=== PATIENT | male | born 1965 | race Hispanic/Latino ===

== ENCOUNTER 2016-10-01 12:34 | Emergency (ER) | payer BC ==
[2016-10-01 13:18] VITALS: BP 130/87
[2016-10-01 13:47] LABS: Hematocrit 48.8 % (35.5-45.6); Hemoglobin 16.6 gm/dl (11.8-15.2); Mean Corpuscular HGB Conc 34 % (32-34); Mean Corpuscular Hemoglobin 33 pg (28-32); Mean Corpuscular Volume 95 fl (84-94); Platelet Count 254 K/mm3 (140-440); Red Blood Count 5.13 M/mm3 (3.65-5.03); Red Cell Distribution Width 14.3 % (13.2-15.2); White Blood Count 7.6 K/mm3 (4.5-11.0)
[2016-10-01 14:00] LABS: Anion Gap 20 mmol/L; BUN/Creatinine Ratio 14.28; Blood Urea Nitrogen 10 mg/dL (9-20); Calcium 8.9 mg/dL (8.4-10.2); Carbon Dioxide 24 mmol/L (22-30); Chloride 100.9 mmol/L (98-107); Glucose 90 mg/dL (75-100); Potassium 4.1 mmol/L (3.6-5.0); Sodium 141 mmol/L (137-145)
--- NOTE | 2016-10-01 14:15 | Emergency Department Report ---
ED Chest Pain HPI - General Chief Complaint: Chest Pain Stated Complaint: CHEST PAIN Time Seen by Provider: 10/01/16 13:38 Source: patient Mode of arrival: Ambulatory Limitations: No Limitations - History of Present Illness Initial Comments: The patient presented for evaluation of chest pain. He is making it clear from the onset that he would like to be discharged. The history is essentially as followed. Patient states that on he had "indigestion all day". He states he was clammy frequently during that day. He denies having problems with reflux. He states on Monday he felt fine and went to see his primary care physician. His primary care physician referred him to [facility]. He states he has appointment for a stress test this week. Today (Monday) he was at work and felt short of breath with light exertion. He states he was a little sweaty today but he didn't break out into a cold sweat. He stated the shortness of breath was unusual for him and that is why he wanted to be checked out. MD Complaint: chest pain -: Gradual Onset: during rest Pain Location: substernal Pain Radiation: none Severity: moderate Quality: other ("indigestion".) Consistency: now resolved Improves With: nothing Worsens With: nothing re: other (sweating and shortness of breath) Treatments Prior to Arrival: none Aspirin use within the Past 7 Days: (1) Yes - Related Data Allergies Allergy/AdvReac Type Severity Reaction Status Date / Time No Known Allergies Allergy Unverified 10/01/16 13:08 JAMES score - James Score Age > 65: (0) No Aspirin use within the Past 7 Days: (1) Yes 3 or more CAD Risk Factors: (1) Yes 2 or more Angina events in past 24 hrs: (0) No Known CAD with more than 50% Stenosis: (1) Yes Elevated Cardiac Markers: (0) No ST Deviation Greater than 0.5mm: (0) No JAMES Score: 3 ED Review of Systems ROS: Stated complaint: CHEST PAIN Other details as noted in HPI Constitutional: denies: chills, fever Eyes: denies: eye pain, eye discharge, vision change ENT: denies: ear pain, throat pain Respiratory: shortness of breath. denies: cough, wheezing Cardiovascular: chest pain. denies: palpitations Endocrine: no symptoms reported Gastrointestinal: denies: abdominal pain, nausea, diarrhea Genitourinary: denies: urgency, dysuria Musculoskeletal: denies: back pain, joint swelling, arthralgia Skin: denies: rash, lesions Neurological: denies: headache, weakness, paresthesias Psychiatric: denies: anxiety, depression Hematological/Lymphatic: denies: easy bleeding, easy bruising ED Past Medical Hx - Past Medical History Hx Hypertension: Yes Hx Heart Attack/AMI: Yes Hx COPD: Yes - Surgical History Additional Surgical History: heart stent x 2, elbow, right knee - Social History Smoking Status: Current Every Day Smoker Substance Use Type: Alcohol ED Physical Exam - General Limitations: No Limitations General appearance: alert, in no apparent distress - Head Head exam: Present: atraumatic, normocephalic - Eye Eye exam: Present: normal appearance. Absent: scleral icterus - ENT ENT exam: Present: mucous membranes moist - Neck Neck exam: Present: normal inspection - Respiratory Respiratory exam: Present: normal lung sounds bilaterally. Absent: respiratory distress - Cardiovascular Cardiovascular Exam: Present: regular rate, normal rhythm. Absent: systolic murmur, diastolic murmur, rubs, gallop - GI/Abdominal GI/Abdominal exam: Present: soft, normal bowel sounds. Absent: distended, tenderness, guarding, rebound, rigid - Rectal Rectal exam: Present: deferred - Extremities Exam Extremities exam: Present: normal inspection, normal capillary refill. Absent: pedal edema, joint swelling, calf tenderness - Back Exam Back exam: Present: normal inspection - Neurological Exam Neurological exam: Present: alert, oriented X3, CN II-XII intact. Absent: motor sensory deficit - Psychiatric Psychiatric exam: Present: normal affect, normal mood - Skin Skin exam: Present: warm, dry, intact, normal color. Absent: rash ED Course Vital Signs 10/01/16 13:13 Temperature 97.8 F Pulse Rate 72 Respiratory 18 Rate Blood Pressure 130/87 O2 Sat by Pulse 98 Oximetry - Reevaluation(s) Reevaluation #1: I have explained to the patient that we would like him to stay for further care , evaluation and cardiology consultation. I explained to him the limitations of current testing. He states he understands that. However, he is not inclined to be admitted. He will sign out AMA. I encouraged him to follow-up as soon as possible with [facility] and return as desired for further care and evaluation. 10/01/16 14:34 ED Medical Decision Making - Lab Data Result diagrams: 10/01/16 13:30 10/01/16 13:30 Critical care attestation.: If time is entered above; I have spent that time in minutes in the direct care of this critically ill patient, excluding procedure time. ED Disposition Clinical Impression: Chest pain Qualifiers: Chest pain type: unspecified Qualified Code(s): R07.9 - Chest pain, unspecified Coronary artery disease Qualifiers: Coronary Disease-Associated Artery/Lesion type: [place] artery [place] vs. transplanted heart: [place] heart Associated angina: angina presence unspecified Qualified Code(s): I25.10 - Atherosclerotic heart disease of [place] coronary artery without angina pectoris Disposition: PATIENT REGISTERED,NO TRIAGE Is pt being admited?: No Does the pt Need Aspirin: No Condition: Stable Instructions: Chest Pain (ED) Additional Instructions: We have commended that you stay for the usual and customary workup for this problem. I would strongly advise you to return should do have any other symptoms. I would additionally recommend that you go to [facility] office for communicate with them on Monday to explain to them your symptoms. Referrals: [facility] [Provider Group] - ZULEMA ROSA MD [Primary Care Provider] - 3-5 Days Time of Disposition: 14:35
[2016-10-01 14:47] LABS: Basophils % (Manual) 0 % (0.0-1.8); Blastocytes % (Manual) 0 %
[2016-10-01 14:48] LABS: Diff Status Complete; RBC Morphology Normal
== END 2016-10-01 15:45 | disposition left against medical advice (07) ==
LOC: ED 12:34
DX: I25.10 Atherosclerotic heart disease of native coronary artery without angina pectoris (principal); R07.9 Chest pain, unspecified; I10 Essential (primary) hypertension; I25.2 Old myocardial infarction; J44.9 Chronic obstructive pulmonary disease, unspecified; F17.200 Nicotine dependence, unspecified, uncomplicated
CPT/HCPCS: 36415; 80048; 84484; 85007; 85025; 93005; 93010

== ENCOUNTER 2017-12-07 11:17 | Emergency (ER) | payer BC ==
[2017-12-07 11:26] VITALS: BP 125/84
[2017-12-07] MEDS ORDERED: NACL 0.9% 1000 ML 1,000 ML IV ONE (11:27)
[2017-12-07 12:02] LABS: Basophils # (Auto) 0.1 K/mm3 (0.0-0.1); Basophils % (Auto) 1.5 % (0.0-1.8); Eosinophils # (Auto) 0.1 K/mm3 (0.0-0.4); Hematocrit 46.9 % (35.5-45.6); Hemoglobin 16.5 gm/dl (11.8-15.2); Lymphocytes # (Auto) 2.5 K/mm3 (1.2-5.4); Lymphocytes % (Auto) 41.1 % (13.4-35.0); Mean Corpuscular HGB Conc 35 % (32-34); Mean Corpuscular Hemoglobin 34 pg (28-32); Mean Corpuscular Volume 97 fl (84-94); Monocytes # (Auto) 0.5 K/mm3 (0.0-0.8); Monocytes % (Auto) 8.1 % (0.0-7.3); Platelet Count 193 K/mm3 (140-440); Red Blood Count 4.82 M/mm3 (3.65-5.03)
[2017-12-07 12:13] LABS: INR 0.82 (0.87-1.13)
[2017-12-07 12:14] LABS: Partial Thromboplastin Time 29.9 Sec. (24.2-36.6)
[2017-12-07 12:21] LABS: Alanine Aminotransferase 136 units/L (7-56); Albumin 4.5 g/dL (3.9-5); BUN/Creatinine Ratio 15; Blood Urea Nitrogen 9 mg/dL (9-20); Calcium 9.1 mg/dL (8.4-10.2); Hemolysis Index 21; Lipase 94 units/L (13-60)
== END 2017-12-07 18:35 | disposition left against medical advice (07) ==
LOC: ED 11:17
DX: K62.5 Hemorrhage of anus and rectum (principal); Z53.21 Procedure and treatment not carried out due to patient leaving prior to being seen by health care provider
CPT/HCPCS: 36415; 80053; 83690; 85025; 85610; 85730; 86850; 86900; 86901; 93005; 93010

== ENCOUNTER 2017-12-26 22:17 | Emergency (ER) | payer SELFPAY ==
[2017-12-26 22:32] VITALS: BP 127/82
[2017-12-26] MEDS ORDERED: NACL 0.9% 1000 ML 1,000 ML IV ONE (22:32)
[2017-12-26 23:04] LABS: Hematocrit 45.8 % (35.5-45.6); Hemoglobin 15.6 gm/dl (11.8-15.2); Mean Corpuscular HGB Conc 34 % (32-34); Mean Corpuscular Hemoglobin 33 pg (28-32); Mean Corpuscular Volume 97 fl (84-94); Platelet Count 168 K/mm3 (140-440); Red Cell Distribution Width 13.8 % (13.2-15.2)
[2017-12-26 23:20] LABS: Alanine Aminotransferase 138 units/L (7-56); Albumin 4.6 g/dL (3.9-5); BUN/Creatinine Ratio 10; Blood Urea Nitrogen 6 mg/dL (9-20); Hemolysis Index 4; Lipase 114 units/L (13-60)
[2017-12-26 23:21] LABS: INR 0.86 (0.87-1.13)
[2017-12-26 23:55] LABS: Band Neutrophils # (Manual) 0.1 K/mm3; Basophils % (Manual) 0 % (0.0-1.8); Total Cells Counted 100
[2017-12-26 23:56] LABS: Platelet Estimate Consistent w Auto
== END 2017-12-27 00:15 | disposition left against medical advice (07) ==
LOC: ED 22:17
DX: K92.2 Gastrointestinal hemorrhage, unspecified (principal)
CPT/HCPCS: 36415; 80053; 83690; 85007; 85025; 85610; 85730; 86850; 86900; 86901

== ENCOUNTER → 2017-12-27 | Emergency (ER) | payer BC, OTHER ==
[~2017-12-27] MED LIST: NACL 0.9% 1000 ML 1,000 ML IV ONE; PROTONIX IV SCH; PROVENTIL IH PRN; SODIUM CHLORIDE FLUSH SYRINGE 10 ML IV PRN; SODIUM CHLORIDE FLUSH SYRINGE 10 ML IV SCH; TYLENOL PO PRN; ZOFRAN IV PRN; celeXA PO SCH
[2017-12-27 09:54] LABS: Basophils # (Auto) 0.1 K/mm3 (0.0-0.1); Basophils % (Auto) 1.9 % (0.0-1.8); Eosinophils # (Auto) 0.1 K/mm3 (0.0-0.4); Eosinophils % (Auto) 1.6 % (0.0-4.3); Hematocrit 48.6 % (35.5-45.6); Hemoglobin 16.9 gm/dl (11.8-15.2); Lymphocytes # (Auto) 1.5 K/mm3 (1.2-5.4); Lymphocytes % (Auto) 38.8 % (13.4-35.0); Mean Corpuscular HGB Conc 35 % (32-34); Mean Corpuscular Hemoglobin 34 pg (28-32); Mean Corpuscular Volume 98 fl (84-94); Monocytes # (Auto) 0.3 K/mm3 (0.0-0.8); Monocytes % (Auto) 8.2 % (0.0-7.3); Platelet Count 172 K/mm3 (140-440); Red Blood Count 4.98 M/mm3 (3.65-5.03)
[2017-12-27 10:16] LABS: Alanine Aminotransferase 168 units/L (7-56); Albumin 4.6 g/dL (3.9-5); BUN/Creatinine Ratio 10; Blood Urea Nitrogen 6 mg/dL (9-20); Calcium 9.1 mg/dL (8.4-10.2); Hemolysis Index 10; Lipase 92 units/L (13-60)
[2017-12-27 10:20] LABS: INR 0.77 (0.87-1.13)
[2017-12-27 10:21] LABS: Partial Thromboplastin Time 28.6 Sec. (24.2-36.6)
[2017-12-27 12:39] VITALS: BP 126/75
--- NOTE | 2017-12-27 13:45 | Emergency Department Report ---
ED GI Bleed HPI - General Chief complaint: GI Bleed Stated complaint: GI BLEED Time Seen by Provider: 12/27/17 11:30 Source: patient Mode of arrival: Ambulatory Limitations: No Limitations - History of Present Illness Initial comments: Patient is a 52-year-old male who is presenting with GI bleed. Patient states that for the past several weeks he has been having daily bloody bowel movements that the patient is even taken pictures as well as vomiting some blue vomit with blood streaks as well. Patient states was bright red and he has some generalized abdominal crampiness. Patient states visited [facility] and states his blood work was done but there is no other diagnostic chest tests performed. Patient states that he is continued to have bleeding per stool. Patient denies any fevers chills chest pain cough nausea vomiting or diarrhea at this time. Patient has past medical history hypertension and acute CA has 2 stents patient is not on any meds at this time secondary to money issues. Severity scale (0 -10): 5 - Related Data Home Medications Medication Instructions Recorded Confirmed Last Taken Citalopram [celeXA] 20 mg PO QDAY 12/27/17 12/27/17 12/26/17 Allergies Allergy/AdvReac Type Severity Reaction Status Date / Time No Known Allergies Allergy Verified 12/07/17 11:22 ED Review of Systems ROS: Stated complaint: GI BLEED Other details as noted in HPI Comment: All other systems reviewed and negative ED Past Medical Hx - Past Medical History Previous Medical History?: Yes Hx Hypertension: Yes Hx Heart Attack/AMI: Yes (x 2) Hx COPD: Yes Additional medical history: GI bleed. CAD - Surgical History Past Surgical History?: Yes Hx Coronary Stent: Yes (x 2) Additional Surgical History: bilateral elbow. right knee - Social History Smoking Status: Current Every Day Smoker Substance Use Type: Alcohol - Medications Home Medications: Home Medications Medication Instructions Recorded Confirmed Last Taken Type Citalopram [celeXA] 20 mg PO QDAY 12/27/17 12/27/17 12/26/17 History ED Physical Exam - General Limitations: No Limitations General appearance: alert, in no apparent distress - Head Head exam: Present: atraumatic, normocephalic - Eye Eye exam: Present: normal appearance - ENT ENT exam: Present: mucous membranes moist - Neck Neck exam: Present: normal inspection - Respiratory Respiratory exam: Present: normal lung sounds bilaterally. Absent: respiratory distress, wheezes, rales, rhonchi - Cardiovascular Cardiovascular Exam: Present: regular rate, normal rhythm. Absent: systolic murmur, diastolic murmur, rubs, gallop - GI/Abdominal GI/Abdominal exam: Present: soft, normal bowel sounds. Absent: distended, tenderness, guarding, rebound - Rectal Rectal exam: Present: deferred, heme (-) stool - Extremities Exam Extremities exam: Present: normal inspection - Back Exam Back exam: Present: normal inspection - Neurological Exam Neurological exam: Present: alert, oriented X3 - Psychiatric Psychiatric exam: Present: normal affect, normal mood - Skin Skin exam: Present: warm, dry, intact, normal color. Absent: rash ED Course Vital Signs 12/27/17 12/27/17 12/27/17 09:16 12:37 12:39 Temperature 99.1 F Pulse Rate 84 92 H Respiratory 16 16 16 Rate Blood Pressure 144/78 Blood Pressure 126/75 [Left] O2 Sat by Pulse 100 98 100 Oximetry ED Medical Decision Making - Lab Data Result diagrams: 12/27/17 09:30 12/27/17 09:30 Despite the fact that the patient was Hemoccult negative on his rectal exam patient did give a stool sample after having a bowel movement here in the department and this did appear bloody. It was loose stool with large amounts of blood present. Patient be admitted at this time to Dr. Stauffer service to undergo a GI workup. Patient's CT scan was inconclusive. - EKG Data -: EKG Interpreted by Me - EKG Data Interpretation: other (EKG shows sinus tachycardia 100 for normal axis normal intervals there is anterior septal Q waves present with no ST segment elevations or depressions time of interpretation is 1145) - Radiology Data CT abdomen and pelvis with IV contrast is negative for acute process Critical care attestation.: If time is entered above; I have spent that time in minutes in the direct care of this critically ill patient, excluding procedure time. ED Disposition Clinical Impression: GI bleed Qualifiers: GI bleed type/associated pathology: unspecified gastrointestinal hemorrhage type Qualified Code(s): K92.2 - Gastrointestinal hemorrhage, unspecified Disposition: DC- TO HOME OR SELFCARE Is pt being admited?: Yes Does the pt Need Aspirin: No Condition: Stable Referrals: PRIMARY CARE, [Primary Care Provider] - 3-5 Days Forms: Accompanied Note
--- NOTE | 2017-12-27 14:12 | Cat Scan Report ---
CT ABDOMEN PELVIS WITH CONTRAST: HISTORY: GI bleeding. COMPARISON: 07/05/12. TECHNIQUE: Helical CT in 1.25mm intervals following IV contrast. Sagittal and coronal reconstructions. FINDINGS: Lung bases: Normal. Liver: Moderate to severe diffuse fatty infiltration of the liver parenchyma is identified. No focal mass. The hepatic vasculature is patent. Biliary system: Normal. Pancreas: Normal. Spleen: Normal. Kidneys/ureters/bladder: Normal. Adrenal glands: Normal. Aorta: Normal. Intestines: Unremarkable. No site of GI bleeding is detected on CT. Appendix: Normal. Ascites: None. Adenopathy: None. Musculoskeletal: Mild thoracolumbar spondylosis. IMPRESSION: No site of GI bleeding is detected on CT. Fatty infiltration of the liver.
--- NOTE | 2017-12-27 14:48 | History and Physical Report ---
Medications and Allergies Allergies Allergy/AdvReac Type Severity Reaction Status Date / Time No Known Allergies Allergy Verified 12/07/17 11:22 Home Medications Medication Instructions Recorded Confirmed Last Taken Type Citalopram [celeXA] 20 mg PO QDAY 12/27/17 12/27/17 12/26/17 History Active Meds: Active Medications Acetaminophen (Tylenol) 650 mg PO Q4H PRN PRN Reason: Pain MILD(1-3)/Fever >100.5/WILLAMS Albuterol (Proventil) 2.5 mg IH Q4HRT PRN PRN Reason: Shortness Of Breath Ondansetron HCl (Zofran) 4 mg IV Q8H PRN PRN Reason: Nausea And Vomiting Pantoprazole Sodium (Protonix) 40 mg IV BID STUART Sodium Chloride (Sodium Chloride Flush Syringe 10 Ml) 10 ml IV BID STUART Sodium Chloride (Sodium Chloride Flush Syringe 10 Ml) 10 ml IV PRN PRN PRN Reason: LINE FLUSH Exam - Constitutional Vitals: Temp Pulse Resp BP Pulse Ox 99.1 F 92 H 16 126/75 100 12/27/17 09:16 12/27/17 12:37 12/27/17 12:39 12/27/17 12:37 12/27/17 12:39 Results - Labs CBC & Chem 7: 12/27/17 09:30 12/27/17 09:30 Labs: Abnormal lab results 12/27/17 12/27/17 12/27/17 Range/Units 09:30 09:30 09:30 WBC 3.8 L (4.5-11.0) K/mm3 Hgb 16.9 H (11.8-15.2) gm/dl Hct 48.6 H (35.5-45.6) % MCV 98 H (84-94) fl MCH 34 H (28-32) pg MCHC 35 H (32-34) % Lymph % (Auto) 38.8 H (13.4-35.0) % [place] % (Auto) 8.2 H (0.0-7.3) % Baso % (Auto) 1.9 H (0.0-1.8) % PT 11.1 L (12.2-14.9) Sec. INR 0.77 L (0.87-1.13) Chloride 97.4 L (98-107) mmol/L BUN 6 L (9-20) mg/dL Creatinine 0.6 L (0.8-1.5) mg/dL Glucose 104 H (75-100) mg/dL AST 177 H (5-40) units/L ALT 168 H (7-56) units/L Lipase 92 H (13-60) units/L
== END | disposition left against medical advice (07) ==
LOC: ED 08:49 → UNDOADMIN 14:46 → 3A 14:46
DX: K92.2 Gastrointestinal hemorrhage, unspecified (principal); I10 Essential (primary) hypertension; J44.9 Chronic obstructive pulmonary disease, unspecified; F17.200 Nicotine dependence, unspecified, uncomplicated; I25.2 Old myocardial infarction
CPT/HCPCS: 36415; 74177; 80053; 83690; 85025; 85610; 85730; 93005; 93010; 99284; J7030; Q9967; C9113

== ENCOUNTER 2019-01-29 12:18 | Emergency (ER) | payer BC ==
[2019-01-29 12:34] VITALS: BP 135/86
--- NOTE | 2019-01-29 12:37 | Emergency Department Report ---
Chief Complaint: GI Bleed Stated Complaint: ABD/VOMITING/RECTAL BLEEDING Time Seen by Provider: 01/29/19 12:32 - HPI History of Present Illness: This is a 53 y.o. M. that presents to the ER with abdominal pain and vomiting x 1 week. Reports hematochezia with bowel movements for weeks. PMH CAD with 2 stents. - Exam Vital Signs: Vital Signs 01/29/19 12:32 Temperature 97.5 F L Pulse Rate 93 H Respiratory 18 Rate Blood Pressure 135/86 MSE screening note: Focused history and physical exam performed. Due to findings the following was ordered: This initial assessment/diagnostic orders/clinical plan/treatment(s) is/are subject to change based on patient's health status, clinical progression and re- assessment by fellow clinical providers in the ED. Further treatment and workup at subsequent clinical providers discretion. Patient/guardians urged not to elope from the ED as their condition may be serious if not clinically assessed and managed. Initial orders include: Labs and CT of abdomen. Main ED for further evaluation. ED Disposition for MSE Condition: Stable
[2019-01-29 13:23] LABS: Eosinophils % (Auto) 0.7 % (0.0-4.3); Hematocrit 45.2 % (35.5-45.6); Hemoglobin 15.9 gm/dl (11.8-15.2); Lymphocytes # (Auto) 1.6 K/mm3 (1.2-5.4); Lymphocytes % (Auto) 32.4 % (13.4-35.0); Mean Corpuscular HGB Conc 35 % (32-34); Mean Corpuscular Volume 98 fl (84-94); Monocytes # (Auto) 0.4 K/mm3 (0.0-0.8); Platelet Count 162 K/mm3 (140-440); Red Blood Count 4.59 M/mm3 (3.65-5.03); Red Cell Distribution Width 13.6 % (13.2-15.2)
[2019-01-29 13:47] LABS: Alanine Aminotransferase 215 units/L (7-56); Albumin 4.3 g/dL (3.9-5); BUN/Creatinine Ratio 6; Blood Urea Nitrogen 3 mg/dL (9-20); Calcium 9.3 mg/dL (8.4-10.2); Hemolysis Index 19
[2019-01-29] MEDS ORDERED: PROTONIX IV ONE (14:05)
--- NOTE | 2019-01-29 14:08 | Emergency Department Report ---
ED General Adult HPI - General Chief complaint: GI Bleed Stated complaint: ABD/VOMITING/RECTAL BLEEDING Time Seen by Provider: 01/29/19 12:32 Source: patient Mode of arrival: Ambulatory Limitations: No Limitations - History of Present Illness Initial comments: Patient presents to the emergency department the chief complaint of bright red blood per rectum for the last month. Patient states this happened to him since months ago as well and resolved but returned a month ago. Patient states she was also seen a cash clerk but never did. He denies abdominal pain, chest pain, headache. -: Gradual Radiation: non-radiation Consistency: constant Improves with: none Worsens with: none Associated Symptoms: denies other symptoms Treatments Prior to Arrival: none - Related Data Home Medications Medication Instructions Recorded Confirmed Last Taken Citalopram [celeXA] 20 mg PO QDAY 12/27/17 12/27/17 12/26/17 Allergies Allergy/AdvReac Type Severity Reaction Status Date / Time No Known Allergies Allergy Verified 01/29/19 12:21 ED Review of Systems ROS: Stated complaint: ABD/VOMITING/RECTAL BLEEDING Other details as noted in HPI Comment: All other systems reviewed and negative Constitutional: denies: chills, fever Eyes: denies: eye pain, eye discharge, vision change ENT: denies: ear pain, throat pain Respiratory: denies: cough, shortness of breath, wheezing Cardiovascular: denies: chest pain, palpitations Endocrine: no symptoms reported Gastrointestinal: other (rectal bleeding). denies: abdominal pain, nausea, diarrhea Genitourinary: denies: urgency, dysuria Musculoskeletal: denies: back pain, joint swelling, arthralgia Skin: denies: rash, lesions Neurological: denies: headache, weakness, paresthesias Psychiatric: denies: anxiety, depression Hematological/Lymphatic: denies: easy bleeding, easy bruising ED Past Medical Hx - Past Medical History Hx Hypertension: Yes Hx Heart Attack/AMI: Yes (x 2) Hx COPD: Yes Additional medical history: GI bleed. CAD - Surgical History Hx Coronary Stent: Yes (x 2) Additional Surgical History: bilateral elbow. right knee - Social History Smoking Status: Never Smoker Substance Use Type: Alcohol - Medications Home Medications: Home Medications Medication Instructions Recorded Confirmed Last Taken Type Citalopram [celeXA] 20 mg PO QDAY 12/27/17 12/27/17 12/26/17 History ED Physical Exam - General Limitations: No Limitations General appearance: alert, in no apparent distress - Head Head exam: Present: atraumatic, normocephalic - Eye Eye exam: Present: normal appearance, PERRL, EOMI - ENT ENT exam: Present: mucous membranes moist - Neck Neck exam: Present: normal inspection - Respiratory Respiratory exam: Present: normal lung sounds bilaterally. Absent: respiratory distress - Cardiovascular Cardiovascular Exam: Present: regular rate, normal rhythm. Absent: systolic murmur, diastolic murmur, rubs, gallop - GI/Abdominal GI/Abdominal exam: Present: soft, normal bowel sounds. Absent: distended, tenderness - Rectal Rectal exam: Present: deferred, other (patient politely declined ) - Extremities Exam Extremities exam: Present: normal inspection - Back Exam Back exam: Present: normal inspection - Neurological Exam Neurological exam: Present: alert, oriented X3 - Psychiatric Psychiatric exam: Present: normal affect, normal mood - Skin Skin exam: Present: warm, dry, intact, normal color. Absent: rash ED Course Vital Signs 01/29/19 12:32 Temperature 97.5 F L Pulse Rate 93 H Respiratory 18 Rate Blood Pressure 135/86 ED Medical Decision Making - Lab Data Result diagrams: 01/29/19 13:11 01/29/19 13:11 Lab Results 01/29/19 01/29/19 01/29/19 Range/Units 13:11 13:11 13:11 WBC 4.9 (4.5-11.0) K/mm3 RBC 4.59 (3.65-5.03) M/mm3 Hgb 15.9 H (11.8-15.2) gm/dl Hct 45.2 (35.5-45.6) % MCV 98 H (84-94) fl MCH 35 H (28-32) pg MCHC 35 H (32-34) % RDW 13.6 (13.2-15.2) % Plt Count 162 (140-440) K/mm3 Lymph % (Auto) 32.4 (13.4-35.0) % [place] % (Auto) 8.0 H (0.0-7.3) % Eos % (Auto) 0.7 (0.0-4.3) % Baso % (Auto) 1.0 (0.0-1.8) % Lymph # 1.6 (1.2-5.4) K/mm3 [place] # 0.4 (0.0-0.8) K/mm3 Eos # 0.0 (0.0-0.4) K/mm3 Baso # 0.0 (0.0-0.1) K/mm3 Seg Neutrophils % 57.9 (40.0-70.0) % Seg Neutrophils # 2.8 (1.8-7.7) K/mm3 Sodium 130 L (137-145) mmol/L Potassium 3.6 (3.6-5.0) mmol/L Chloride 92.2 L (98-107) mmol/L Carbon Dioxide 23 (22-30) mmol/L Anion Gap 18 mmol/L BUN 3 L (9-20) mg/dL Creatinine 0.5 L (0.8-1.5) mg/dL Estimated GFR > 60 ml/min BUN/Creatinine Ratio 6 % Glucose 114 H (75-100) mg/dL Calcium 9.3 (8.4-10.2) mg/dL Total Bilirubin 0.50 (0.1-1.2) mg/dL AST 213 H (5-40) units/L ALT 215 H (7-56) units/L Alkaline Phosphatase 120 (35-129) units/L Total Protein 7.7 (6.3-8.2) g/dL Albumin 4.3 (3.9-5) g/dL Albumin/Globulin Ratio 1.3 % Lipase 78 H (13-60) units/L - Radiology Data Radiology results: report reviewed - Medical Decision Making Discussed results with patient and need to follow-up with GI Critical care attestation.: If time is entered above; I have spent that time in minutes in the direct care of this critically ill patient, excluding procedure time. ED Disposition Clinical Impression: Rectal bleeding Disposition: DC- TO HOME OR SELFCARE Is pt being admited?: No Does the pt Need Aspirin: No Condition: Stable Instructions: Rectal Bleeding (ED) Additional Instructions: return if worse Referrals: LEONCIO THOMAS MD [Primary Care Provider] - 3-5 Days [facility] [Provider Group] - 3-5 Days [facility] [Provider Group] - 3-5 Days [facility] [Provider Group] - 3-5 Days Forms: Accompanied Note Time of Disposition: 15:18
== END 2019-01-29 15:41 | disposition home or self-care (01) ==
LOC: ED 12:18
DX: K62.5 Hemorrhage of anus and rectum (principal); I10 Essential (primary) hypertension; I25.2 Old myocardial infarction; J44.9 Chronic obstructive pulmonary disease, unspecified; Z95.1 Presence of aortocoronary bypass graft
CPT/HCPCS: 36415; 80053; 83690; 85025; 99283

== ENCOUNTER 2021-04-13 17:00 | Inpatient (IN) | payer OTHER ==
[2021-04-13] MEDS: NITROGLYCERIN 0.4 MG TAB SUBL SL ONE ×3 (17:42→17:55)
--- NOTE | 2021-04-13 17:42 | Emergency Department Report ---
ED Chest Pain HPI - General Stated Complaint: CHEST PAIN Time Seen by Provider: 04/13/21 17:25 Source: patient, old records reviewed Mode of arrival: Stretcher Limitations: No Limitations - History of Present Illness Initial Comments: 55-year-old male with past medical history of CAD with stent x2, previous cardiac arrest related to [place], COPD (per medical record pt denies), history of GI bleed/blood in stool with cause unidentified, COPD, current smoker, family history of CAD, and noncompliance with all meds presents to the hospital complaints of chest pain/epigastric pain that started 1 hour prior to arrival. Patient describes the pain as "indigestion". Pain is constant, taking deep breaths to try to alleviate obstructed feeling, nausea with vomiting x2 prior to arrival, and reported diaphoresis with "abnormal feeling in left arm." Patient denies hematemesis, melena, hematochezia, or coffee-ground emesis. 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 His been unsure since 2014 has been noncompliant with his Pravachol, Plavix, aspirin, and metoprolol since that time. Aspirin provided by EMS. No nitroglycerin provided prior to arrival. Previous medical record reviewed and patient has signed out AMA in the past despite recommended admissions for chest pain and GI bleed work-up. Patient admits to drinking beer daily with mild tremors when he does not drink. Last etoh drink at noon Patient remained saturation 93% placed on supplemental O2. Patient denies home oxygen use, diagnosis COPD, cough, loss of sense of taste or smell. He is unvaccinated for Covid. - Related Data Home Medications Medication Instructions Recorded Confirmed Last Taken Citalopram [celeXA] 20 mg PO QDAY 12/27/17 12/27/17 12/26/17 Previous Rx's Medication Instructions Recorded Last Taken Type Esomeprazole Magnesium [NexIUM] 40 mg PO QDAY #30 capsule. 01/29/19 Unknown Rx Allergies Allergy/AdvReac Type Severity Reaction Status Date / Time No Known Allergies Allergy Verified 01/29/19 12:21 Heart Score - HEART Score History: Moderately suspicious EKG: Normal Age: 45-65 Risk factors: > 3 risk factors or hx of atherosclerotic disease Troponin: < normal limit HEART Score: 4 - EKG Read Time Time EKG Completed: 17:39 EKG Read Time: 17:44 ED Review of Systems ROS: Stated complaint: CHEST PAIN Other details as noted in HPI Comment: All other systems reviewed and negative ED Past Medical Hx - Past Medical History Hx Hypertension: Yes Hx Heart Attack/AMI: Yes (x 2) Hx COPD: Yes Additional medical history: GI bleed. CAD - Surgical History Hx Coronary Stent: Yes (x 2) Additional Surgical History: bilateral elbow. right knee - Social History Smoking Status: Never Smoker Substance Use Type: Alcohol - Medications Home Medications: Home Medications Medication Instructions Recorded Confirmed Last Taken Type Citalopram [celeXA] 20 mg PO QDAY 12/27/17 12/27/17 12/26/17 History Esomeprazole Magnesium [NexIUM] 40 mg PO QDAY #30 capsule. 01/29/19 Unknown Rx ED Physical Exam - General Limitations: No Limitations - Other Other exam information: General: No acute distress Head: Atraumatic Eyes: normal appearance ENT: Moist mucous membranes Neck: Normal appearance, no midline tenderness Chest: Clear to auscultation bilaterally CV: Regular rate and rhythm Abdomen: Soft, normal bowel sounds, epigastric tenderness, nondistended, no rebound or guarding Back: Normal inspection Extremity: Normal inspection, full range of motion, no calf tenderness or leg edema Neuro: Alert O x 3, no facial asymmetry, speech clear, no gross motor sensory deficit. No tremors currently Psych: Appropriate behavior Skin: No rash ED Course Vital Signs 04/13/21 04/13/21 04/13/21 17:29 17:30 17:35 Temperature Pulse Rate Respiratory Rate Blood Pressure 140/86 140/86 Blood Pressure [Right] O2 Sat by Pulse 98 95 98 Oximetry 04/13/21 04/13/21 04/13/21 17:41 17:42 17:45 Temperature Pulse Rate 83 92 H Respiratory 17 Rate Blood Pressure 149/86 149/86 149/86 Blood Pressure [Right] O2 Sat by Pulse 98 96 Oximetry 04/13/21 04/13/21 04/13/21 17:49 17:51 17:55 Temperature Pulse Rate 103 H 103 H 107 H Respiratory 24 21 Rate Blood Pressure 129/76 129/76 122/79 Blood Pressure [Right] O2 Sat by Pulse 93 94 Oximetry 04/13/21 04/13/21 04/13/21 18:01 18:05 18:10 Temperature Pulse Rate 100 H 97 H Respiratory 18 22 Rate Blood Pressure 97/60 98/60 Blood Pressure 98/60 [Right] O2 Sat by Pulse 95 95 Oximetry 04/13/21 04/13/21 04/13/21 18:11 18:14 18:15 Temperature Pulse Rate 92 H 94 H Respiratory 18 20 Rate Blood Pressure 124/74 131/77 Blood Pressure [Right] O2 Sat by Pulse 97 95 97 Oximetry 04/13/21 04/13/21 04/13/21 18:21 18:25 18:31 Temperature Pulse Rate 86 88 80 Respiratory 18 20 18 Rate Blood Pressure 124/74 119/70 137/80 Blood Pressure [Right] O2 Sat by Pulse 98 99 99 Oximetry 04/13/21 04/13/21 04/13/21 18:35 18:41 18:45 Temperature Pulse Rate 96 H 91 H 90 Respiratory 19 20 16 Rate Blood Pressure 124/82 124/82 124/82 Blood Pressure [Right] O2 Sat by Pulse 95 98 100 Oximetry 04/13/21 04/13/21 04/13/21 18:51 18:55 19:01 Temperature Pulse Rate 89 81 90 Respiratory 17 13 20 Rate Blood Pressure 124/82 117/81 117/81 Blood Pressure 124/82 [Right] O2 Sat by Pulse 99 100 99 Oximetry 04/13/21 04/13/21 04/13/21 19:05 19:11 19:33 Temperature Pulse Rate 89 88 97 H Respiratory 16 18 18 Rate Blood Pressure 117/81 117/81 117/81 Blood Pressure [Right] O2 Sat by Pulse 99 100 95 Oximetry 04/13/21 04/13/21 04/13/21 19:35 19:41 19:45 Temperature Pulse Rate 97 H 93 H 94 H Respiratory 17 24 18 Rate Blood Pressure 117/81 117/81 117/81 Blood Pressure [Right] O2 Sat by Pulse 95 94 93 Oximetry 04/13/21 04/13/21 21:24 23:04 Temperature 98.6 F Pulse Rate 111 H Respiratory Rate Blood Pressure 123/71 Blood Pressure [Right] O2 Sat by Pulse Oximetry - Reevaluation(s) Reevaluation #1: 04/13/21 18:03 Patient received 3 nitroglycerin pain went down from a 7 to a 4. Systolic blood pressure 96. GI meds and normal saline ordered. 04/13/21 18:53 Elevated LFTs with mild elevation of lipase noted. Patient questioned and admits to drinking beer daily. Improvement in epigastric discomfort at the GI cocktail and epigastrium no longer tender. CT abdomen pelvis ordered 04/13/21 21:53 Patient updated on results and plan for admission. He does appear to have tremors at this time. Will inform nurse to perform CIWA to determine dose of Ativan if needed. Will change from p.o. to IV will change order from p.o. to IV Ativan. 04/13/21 22:40 Second troponin positive. Patient is pain-free and complains of mild tremors of nausea. Patient to receive Ativan as part of CIWA protocol. Nitroglycerin paste ordered. Awaiting repeat requested EKG prior to calling cardiology. 04/13/21 23:02 Repeat EKG unchanged cardiology paged - Consultations Consultation #1: 04/13/21 23:07 Dr Jones transformer shop supervisor contacted. She states she is okay with nitroglycerin paste but does not recommend any acute intervention or anticoagulation at this time. Will be evaluated by cardiology team in the a.m. JAMES score - James Score Age > 65: (0) No Aspirin use within the Past 7 Days: (0) No 3 or more CAD Risk Factors: (1) Yes 2 or more Angina events in past 24 hrs: (0) No Known CAD with more than 50% Stenosis: (1) Yes Elevated Cardiac Markers: (0) No ST Deviation Greater than 0.5mm: (0) No JAMES Score: 2 ED Medical Decision Making - Lab Data Result diagrams: 04/13/21 17:44 04/13/21 17:44 Lab Results 04/13/21 04/13/21 Range/Units 17:44 17:44 WBC 6.6 (4.5-11.0) K/mm3 RBC 4.41 (3.65-5.03) M/mm3 Hgb 11.7 L (11.8-15.2) gm/dl Hct 36.2 (35.5-45.6) % MCV 82 L (84-94) fl MCH 27 L (28-32) pg MCHC 32 (32-34) % RDW 19.5 H (13.2-15.2) % Plt Count 177 (140-440) K/mm3 Lymph % (Auto) 12.3 L (13.4-35.0) % [place] % (Auto) 6.2 (0.0-7.3) % Eos % (Auto) 0.9 (0.0-4.3) % Baso % (Auto) 0.9 (0.0-1.8) % Lymph # (Auto) 0.8 L (1.2-5.4) K/mm3 [place] # (Auto) 0.4 (0.0-0.8) K/mm3 Eos # (Auto) 0.1 (0.0-0.4) K/mm3 Baso # (Auto) 0.1 (0.0-0.1) K/mm3 Seg Neutrophils % 79.7 H (40.0-70.0) % Seg Neutrophils # 5.2 (1.8-7.7) K/mm3 Sodium 137 (137-145) mmol/L Potassium 3.6 (3.6-5.0) mmol/L Chloride 99.1 (98-107) mmol/L Carbon Dioxide 21 L (22-30) mmol/L Anion Gap 21 mmol/L BUN 5 L (9-20) mg/dL Creatinine 0.5 L (0.8-1.3) mg/dL Estimated GFR > 60 ml/min BUN/Creatinine Ratio 10 % Glucose 135 H (75-100) mg/dL Calcium 8.7 (8.4-10.2) mg/dL Total Bilirubin 0.30 (0.1-1.2) mg/dL AST 121 H (5-40) units/L ALT 59 H (7-56) units/L Alkaline Phosphatase 197 H (35-129) units/L Troponin T < 0.010 (0.00-0.029) ng/mL Total Protein 7.9 (6.3-8.2) g/dL Albumin 4.3 (3.9-5) g/dL Albumin/Globulin Ratio 1.2 % Lipase 84 H (13-60) units/L - EKG Data -: EKG Interpreted by Ms EKG shows normal: sinus rhythm, ST-T waves (no stemi) Rate: normal - EKG Data When compared to previous EKG there are: no significant change (12/2017) 04/13/21 23:02 Repeat EKG without acute changes performed at 22: 59 read at 23: 01 - Radiology Data Radiology results: report reviewed CHEST 1 VIEW 04/13/2021 4:53 PM INDICATION / CLINICAL INFORMATION: Chest Pain. COMPARISON: None available. FINDINGS: SUPPORT DEVICES: None. HEART / MEDIASTINUM: No significant abnormality. LUNGS / PLEURA: No significant pulmonary or pleural abnormality. No pneumothorax. ADDITIONAL FINDINGS: No significant additional findings. IMPRESSION: 1. No acute findings. CT ABDOMEN AND PELVIS WITH CONTRAST HISTORY: Epigastric pain, nausea, vomiting 100ml of omnipaque 300 given. COMPARISON: CT abdomen/pelvis from 12/27/2017 TECHNIQUE: CT images of the abdomen and pelvis were obtained following administration of intravenous contrast. All CT scans at this location are performed using CT dose reduction for ALARA by means of automated exposure control. CONTRAST: 100 ml of intravenous contrast administered. FINDINGS: Lungs/bones: There is minimal left greater than right basilar atelectasis with otherwise clear lungs. Degenerative changes are present in the spine and pelvis with no acute osseous abnormality. Abdomen/pelvis: There is moderate hepatic steatosis. The liver otherwise appears unremarkable. The biliary tree and gallbladder appear normal. The spleen, pancreas, adrenals, kidneys, and proximal GI tract appear unremarkable. The urinary bladder and prostate appear normal with no pelvic free fluid. No acute colonic abnormality. The appendix and terminal ileum appear normal. IMPRESSION: 1. No acute abnormality identified. 2. Incidental findings as above including moderate hepatic steatosis. - Medical Decision Making 55-year-old male with significant cardiac risk factors presents to the hospital describing chest pain that feels like indigestion. Clinically patient has epigastric abdominal tenderness. He admits to heavy daily alcohol use. Differential includes alcohol gastritis/GI pathology versus cardiac/unstable angina. Surgical or infectious pathology revealed on CT. Symptoms improved after nitroglycerin with further improvement with Pepcid, Maalox and viscous lidocaine. Aspirin provided by EMS. Heart score 4, no acute EKG changes. Patient will be admitted to the hospital service for further cardiac work-up and evaluation. Case discussed with Dr. Kennedy ORTEGA ordered Case discussed with Dr. Gutierrez transformer shop supervisor after second troponin was posi tive. Patient pain free. EKG unchanged. Nitropaste ordered. She does not recommend intervention on anticoagulation at this time Critical Care Time: No Critical care attestation.: If time is entered above; I have spent that time in minutes in the direct care of this critically ill patient, excluding procedure time. ED Disposition Clinical Impression: Chest pain, Epigastric pain, Alcohol abuse, Nicotine dependence, History of heart artery stent, Elevated troponin Disposition: 09 ADMITTED INPATIENT Is pt being admited?: Yes Condition: Stable Time of Disposition: 21:27 (Dr Benavides/hospitalist)
[2021-04-13] MEDS ORDERED: ONDANSETRON 4 MG/2 ML INJ IV ONE (17:46)
--- NOTE | 2021-04-13 17:59 | XRay Report ---
CHEST 1 VIEW 04/13/2021 4:53 PM INDICATION / CLINICAL INFORMATION: Chest Pain. COMPARISON: None available. FINDINGS: SUPPORT DEVICES: None. HEART / MEDIASTINUM: No significant abnormality. LUNGS / PLEURA: No significant pulmonary or pleural abnormality. No pneumothorax. ADDITIONAL FINDINGS: No significant additional findings. IMPRESSION: 1. No acute findings. Signer Name: Je Zacarias MD Signed: 04/13/2021 5:54 PM Workstation Name: [id number]
[2021-04-13] MEDS ORDERED: ALUM-MAG HYDROXIDE-SIMETHICONE 200-200-20MG/5ML ORAL LIQD 30 ML PO ONE (18:04)
[2021-04-13] MEDS ORDERED: FAMOTIDINE 20 MG/2 ML INJ IV ONE (18:04)
[2021-04-13] MEDS ORDERED: SODIUM CHLORIDE 0.9% 500 ML 500 ML IV ONE (18:04)
[2021-04-13] MEDS ORDERED: LIDOCAINE VISCOUS 2% 15 ML ORAL LIQD PO ONE (18:04)
[2021-04-13 18:21] LABS: Alanine Aminotransferase 59 units/L (7-56); Albumin 4.3 g/dL (3.9-5); Blood Urea Nitrogen 5 mg/dL (9-20); Calcium 8.7 mg/dL (8.4-10.2); Hemolysis Index 3
[2021-04-13 18:32] LABS: BUN/Creatinine Ratio 10
[2021-04-13 18:48] LABS: Basophils # (Auto) 0.1 K/mm3 (0.0-0.1); Basophils % (Auto) 0.9 % (0.0-1.8); Eosinophils # (Auto) 0.1 K/mm3 (0.0-0.4); Eosinophils % (Auto) 0.9 % (0.0-4.3); Hematocrit 36.2 % (35.5-45.6); Hemoglobin 11.7 gm/dl (11.8-15.2); Lymphocytes # (Auto) 0.8 K/mm3 (1.2-5.4); Lymphocytes % (Auto) 12.3 % (13.4-35.0); Mean Corpuscular HGB Conc 32 % (32-34); Mean Corpuscular Volume 82 fl (84-94); Monocytes # (Auto) 0.4 K/mm3 (0.0-0.8); Monocytes % (Auto) 6.2 % (0.0-7.3); Platelet Count 177 K/mm3 (140-440); Red Blood Count 4.41 M/mm3 (3.65-5.03); Red Cell Distribution Width 19.5 % (13.2-15.2)
--- NOTE | 2021-04-13 19:53 | Cat Scan Report ---
CT ABDOMEN AND PELVIS WITH CONTRAST HISTORY: Epigastric pain, nausea, vomiting 100ml of omnipaque 300 given. COMPARISON: CT abdomen/pelvis from 12/27/2017 TECHNIQUE: CT images of the abdomen and pelvis were obtained following administration of intravenous contrast. All CT scans at this location are performed using CT dose reduction for ALARA by means of automated exposure control. CONTRAST: 100 ml of intravenous contrast administered. FINDINGS: Lungs/bones: There is minimal left greater than right basilar atelectasis with otherwise clear lungs . Degenerative changes are present in the spine and pelvis with no acute osseous abnormality. Abdomen/pelvis: There is moderate hepatic steatosis. The liver otherwise appears unremarkable. The b iliary tree and gallbladder appear normal. The spleen, pancreas, adrenals, kidneys, and proximal GI t ract appear unremarkable. The urinary bladder and prostate appear normal with no pelvic free fluid. No acute colonic abnormalit y. The appendix and terminal ileum appear normal. IMPRESSION: 1. No acute abnormality identified. 2. Incidental findings as above including moderate hepatic steatosis. Signer Name: Tim Freeman MD Signed: 04/13/2021 7:49 PM Workstation Name: [id number]
[2021-04-13] MEDS ORDERED: LORazepam 2 MG TAB PO PRN ×3 (21:25→21:53)
[2021-04-13 21:50] LABS: Chol/HDL Ratio 4.44 %
[2021-04-13] MEDS ORDERED: traMADol 50 MG TAB PO PRN (21:50)
[2021-04-13] MEDS ORDERED: MAGNESIUM HYDROXIDE (MOM) ORAL LIQD UDC PO PRN (21:50)
[2021-04-13] MEDS ORDERED: MORPHINE 4 MG/1 ML INJ IV PRN (21:50)
[2021-04-13] MEDS ORDERED: NITROGLYCERIN 0.4 MG TAB SUBL SL PRN (21:50)
[2021-04-13] MEDS ORDERED: ACETAMINOPHEN 325 MG TAB PO PRN (21:50)
--- NOTE | 2021-04-13 22:04 | History and Physical Report ---
History of Present Illness Date of examination: 04/13/21 Date of admission: 04/13/21 21:28 Chief complaint: Chest Pain History of present illness: 55-year-old male with known history of coronary artery disease status post stent placement in the past, previous cardiac arrest, COPD, history of GI bleed and a strong family history of coronary artery disease presenting with to the emergency room today complaining of mid epigastric pain radiating to the upper chest. Pain is said to be constant and gets worse upon taking a deep breath. She has had associated nausea and vomiting prior to arrival in the emergency room. He denies any headaches, no dizziness or was diaphoretic. He had some tingling sensation in the left upper extremity. He denies any abdominal pain, no diarrhea, no hematuria or dysuria, no fever or chills. Patient denies any sick contacts and no recent travel. Denies any contact with anyone with COVID- 19. Patient admits that he has not been quite compliant with his medications and also has not had the Covid 19 vaccination. Initial work-up in the emergency room today reveals a troponin of less than 0.01 however subsequent troponin levels were elevated at 0.159 and 0.268. EKG showed no acute findings. Chest x-ray showed no acute findings. Crown Presser on-call was consulted by the ER physician who indicated that patient will be followed up in the a.m. Nitropaste was recommended. Anticoagulation was not recommended at this time. Past History Past Medical History: acute [place], CAD, COPD, hypertension, other (H/O GI bleed) Past Surgical History: PTCA Social history: smoking (1 Pack per day), alcohol abuse (Daily alcohol Intake) Family history: no significant family history Medications and Allergies Allergies Allergy/AdvReac Type Severity Reaction Status Date / Time No Known Allergies Allergy Verified 01/29/19 12:21 Home Medications Medication Instructions Recorded Confirmed Last Taken Type Citalopram [celeXA] 20 mg PO QDAY 12/27/17 12/27/17 12/26/17 History Esomeprazole Magnesium [NexIUM] 40 mg PO QDAY #30 capsule. 01/29/19 Unknown Rx Active Meds: Active Medications Lorazepam (Lorazepam 2 Mg/Ml Vial) 4 mg IV Q1HR PRN PRN Reason: [facility] - Lorazepam (Lorazepam 2 Mg/Ml Vial) 2 mg IV Q1HR PRN PRN Reason: CIWA-Ar 8-15 Review of Systems Constitutional: no fever, no chills Ears, nose, mouth and throat: no nasal congestion, no sore throat Cardiovascular: chest pain, no palpitations Respiratory: shortness of breath, no cough Gastrointestinal: nausea, vomiting, no diarrhea Genitourinary Male: no dysuria, no hematuria, no flank pain Musculoskeletal: no neck pain, no low back pain Integumentary: no rash, no pruritis Neurological: no headaches, no confusion Psychiatric: no anxiety, no depression Endocrine: no polyphagia, no polydipsia, no polyuria, no nocturia Exam - Constitutional Vitals: Temp Pulse Resp BP Pulse Ox 98.6 F 94 H 18 117/81 93 04/13/21 21:24 04/13/21 19:45 04/13/21 19:45 04/13/21 19:45 04/13/21 19:45 General appearance: Present: no acute distress, well-nourished - EENT Eyes: Present: PERRL, EOM intact. Absent: scleral icterus ENT: hearing intact, clear oral mucosa, dentition normal - Neck Neck: Present: supple, normal ROM - Respiratory Respiratory effort: normal Respiratory: bilateral: CTA - Cardiovascular Rhythm: regular Heart Sounds: Present: S1 & S2. Absent: gallop, systolic murmur, diastolic murmur, rub, click - Extremities Extremities: no ischemia, pulses intact, pulses symmetrical, No edema, Full ROM Peripheral Pulses: within normal limits - Abdominal General gastrointestinal: Present: soft, non-tender, non-distended, normal bowel sounds. Absent: mass - Integumentary Integumentary: Present: clear, warm, dry. Absent: rash - Musculoskeletal Musculoskeletal: strength equal bilaterally - Psychiatric Psychiatric: appropriate mood/affect, intact judgment & insight, memory intact, cooperative, other (Mildly anxious) - Neurologic Neurologic: CNII-XII intact, no focal deficits, moves all extremities, other (Few fine tremors in outstreched hands.) HEART Score - HEART Score History: Moderately suspicious EKG: Normal Age: 45-65 Risk factors: > 3 risk factors or hx of atherosclerotic disease Troponin: Troponin T 0.159 ng/mL (0.00-0.029) H* D 04/13/21 20:44 Troponin: < normal limit HEART Score: 4 Results - Labs CBC & Chem 7: 04/13/21 17:44 04/14/21 01:17 Labs: Abnormal lab results 04/13/21 04/13/21 04/13/21 Range/Units 17:44 17:44 20:44 Hgb 11.7 L (11.8-15.2) gm/dl MCV 82 L (84-94) fl MCH 27 L (28-32) pg RDW 19.5 H (13.2-15.2) % Lymph % (Auto) 12.3 L (13.4-35.0) % Lymph # (Auto) 0.8 L (1.2-5.4) K/mm3 Seg Neutrophils % 79.7 H (40.0-70.0) % Carbon Dioxide 21 L (22-30) mmol/L BUN 5 L (9-20) mg/dL Creatinine 0.5 L (0.8-1.3) mg/dL Glucose 135 H (75-100) mg/dL AST 121 H (5-40) units/L ALT 59 H (7-56) units/L Alkaline Phosphatase 197 H (35-129) units/L Troponin T 0.159 H* D (0.00-0.029) ng/mL Cholesterol 209 H (50-199) mg/dL LDL Cholesterol Direct 158 H (50-130) mg/dL Lipase 84 H (13-60) units/L Assessment and Plan - Patient Problems (1) Chest pain Current Visit: Yes Status: Acute Plan to address problem: Patient admitted and placed on telemetry. We will check serial cardiac enzymes. Patient be placed on daily aspirin, sublingual nitroglycerin and IV morphine as needed for chest pain. Consult has been placed to aquarist for evaluation and further recommendations. (2) HTN (hypertension) Current Visit: No Status: Acute Qualifiers: Hypertension type: essential hypertension Plan to address problem: We will resume routine home medications and monitor vital signs closely. (3) Alcohol abuse Current Visit: Yes Status: Acute Plan to address problem: Patient drinks alcohol almost on a daily basis. We will place on the CIWA protocol. (4) Nicotine dependence Current Visit: Yes Status: Acute Plan to address problem: Patient counseled on quitting tobacco abuse. We will place on nicotine patch as needed. (5) DVT prophylaxis Current Visit: No Status: Acute Plan to address problem: Patient placed on subcutaneous heparin. (6) Full code status Current Visit: Yes Status: Acute Plan to address problem: Patient is full code.
[2021-04-13] MEDS ORDERED: NITROGLYCERIN 2% OINT 1 GM TP ONE (22:36)
[2021-04-13] MEDS: LORazepam 2 MG/ML VIAL IV PRN (22:40)
[2021-04-14 02:54] LABS: Blood Urea Nitrogen 5 mg/dL (9-20); Calcium 8.6 mg/dL (8.4-10.2); Hemolysis Index 1
[2021-04-14 03:00] LABS: BUN/Creatinine Ratio 10
[2021-04-14 06:23] LABS: Basophils # (Auto) 0.1 K/mm3 (0.0-0.1); Basophils % (Auto) 0.9 % (0.0-1.8); Eosinophils # (Auto) 0.1 K/mm3 (0.0-0.4); Eosinophils % (Auto) 1.6 % (0.0-4.3); Hematocrit 33.4 % (35.5-45.6); Hemoglobin 11.2 gm/dl (11.8-15.2); Lymphocytes # (Auto) 1.3 K/mm3 (1.2-5.4); Lymphocytes % (Auto) 19.6 % (13.4-35.0); Mean Corpuscular HGB Conc 34 % (32-34); Mean Corpuscular Volume 80 fl (84-94); Monocytes # (Auto) 0.5 K/mm3 (0.0-0.8); Monocytes % (Auto) 7.2 % (0.0-7.3); Platelet Count 173 K/mm3 (140-440); Red Blood Count 4.18 M/mm3 (3.65-5.03); Red Cell Distribution Width 19.3 % (13.2-15.2)
[2021-04-14 06:39] LABS: Blood Urea Nitrogen 7 mg/dL (9-20); Calcium 9.1 mg/dL (8.4-10.2); Hemolysis Index 0
[2021-04-14 06:45] LABS: BUN/Creatinine Ratio 14
[2021-04-14] MEDS ORDERED: REGADENOSON 0.4 MG/5 ML INJ IV ONE (07:10)
[2021-04-14] MEDS: LORazepam 2 MG/ML VIAL IV PRN ×3 (09:22→22:16)
[2021-04-14] MEDS: ONDANSETRON 4 MG/2 ML INJ IV PRN ×3 (09:22→22:16)
[2021-04-14] MEDS ORDERED: SODIUM CHLORIDE 0.9% 500 ML 500 ML IV SCH (10:00)
[2021-04-14] MEDS ORDERED: HEPARIN 10,000 UNITS/10 ML VIAL IV SCH (10:00)
--- NOTE | 2021-04-14 10:24 | Progress Note ---
Assessment and Plan Assessment and plan: --Non-ST elevation [place]; Current Visit: Yes Status: Acute Stress test discontinued, cardiology recommended Left heart catheterization tomorrow N.p.o. midnight, continue current cardiac medications Echocardiogram for LV function ejection fraction -- Chest pain Current Visit: Yes Status: Acute Plan to address problem: Serial cardiac enzymes, echocardiogram Lexiscan discontinued per cardiology Possible left heart catheterization tomorrow -- HTN (hypertension) Current Visit: No Status: Acute Continue current antihypertensives, as needed medications --Dyslipidemia; Current Visit: Yes Status: Acute Continue statin, low-cholesterol diet --History of alcohol abuse Current Visit: Yes Status: Acute Patient drinks alcohol almost on a daily basis. Monitor for withdrawal symptoms , initiate CIWA protocol. Counseling strongly advised to quit alcohol use --Nicotine dependence Current Visit: Yes Status: Acute Patient counseled on quitting tobacco abuse. Smoking cessation, nicotine patch as needed --DVT prophylaxis Current Visit: No Status: Acute Patient placed on subcutaneous heparin. --Full code status Current Visit: Yes Status: Acute Patient is full code. We will closely monitor the patient and adjust the management as needed Consults and recommendations from appreciated Plan of care reviewed with the patient and his nurse History Interval history: I have seen and examined the patient at the bedside Patient's chart and medications reviewed Patient was scheduled for stress test however cardiology recommended heart cath tomorrow Cardiac enzymes of home Vital signs noted Hospitalist Physical - Constitutional Vitals: Temp Pulse Resp BP Pulse Ox 98.6 F 80 18 133/77 94 04/13/21 21:24 04/14/21 07:21 04/14/21 07:21 04/14/21 07:21 04/14/21 07:21 General appearance: Present: mild distress, well-nourished - EENT Eyes: Present: PERRL, EOM intact - Neck Neck: Present: supple, normal ROM - Respiratory Respiratory effort: normal Respiratory: bilateral: diminished, negative: rales, rhonchi, wheezing - Cardiovascular Rhythm: regular Heart Sounds: Present: S1 & S2 - Extremities Extremities: no ischemia, No edema - Abdominal General gastrointestinal: soft, non-tender, non-distended, normal bowel sounds - Integumentary Integumentary: Present: clear, warm - Psychiatric Psychiatric: appropriate mood/affect, cooperative - Neurologic Neurologic: CNII-XII intact, moves all extremities HEART Score - HEART Score EKG: Normal Age: 45-65 Risk factors: > 3 risk factors or hx of atherosclerotic disease Troponin: Troponin T 0.305 ng/mL (0.00-0.029) H* 04/14/21 05:38 Troponin: < normal limit Results - Labs CBC & Chem 7: 04/14/21 12:56 04/14/21 05:38 Labs: Laboratory Last Values WBC 6.5 K/mm3 (4.5-11.0) 04/14/21 05:38 RBC 4.18 M/mm3 (3.65-5.03) 04/14/21 05:38 Hgb 11.2 gm/dl (11.8-15.2) L 04/14/21 05:38 Hct 33.4 % (35.5-45.6) L 04/14/21 05:38 MCV 80 fl (84-94) L 04/14/21 05:38 MCH 27 pg (28-32) L 04/14/21 05:38 MCHC 34 % (32-34) 04/14/21 05:38 RDW 19.3 % (13.2-15.2) H 04/14/21 05:38 Plt Count 173 K/mm3 (140-440) 04/14/21 05:38 Lymph % (Auto) 19.6 % (13.4-35.0) 04/14/21 05:38 [place] % (Auto) 7.2 % (0.0-7.3) 04/14/21 05:38 Eos % (Auto) 1.6 % (0.0-4.3) 04/14/21 05:38 Baso % (Auto) 0.9 % (0.0-1.8) 04/14/21 05:38 Lymph # (Auto) 1.3 K/mm3 (1.2-5.4) 04/14/21 05:38 [place] # (Auto) 0.5 K/mm3 (0.0-0.8) 04/14/21 05:38 Eos # (Auto) 0.1 K/mm3 (0.0-0.4) 04/14/21 05:38 Baso # (Auto) 0.1 K/mm3 (0.0-0.1) 04/14/21 05:38 Seg Neutrophils % 70.7 % (40.0-70.0) H 04/14/21 05:38 Seg Neutrophils # 4.6 K/mm3 (1.8-7.7) 04/14/21 05:38 Sodium 140 mmol/L (137-145) 04/14/21 05:38 Potassium 4.1 mmol/L (3.6-5.0) 04/14/21 05:38 Chloride 99.8 mmol/L (98-107) 04/14/21 05:38 Carbon Dioxide 29 mmol/L (22-30) 04/14/21 05:38 Anion Gap 15 mmol/L 04/14/21 05:38 BUN 7 mg/dL (9-20) L 04/14/21 05:38 Creatinine 0.5 mg/dL (0.8-1.3) L 04/14/21 05:38 Estimated GFR > 60 ml/min 04/14/21 05:38 BUN/Creatinine Ratio 14 % 04/14/21 05:38 Glucose 113 mg/dL (75-100) H 04/14/21 05:38 Calcium 9.1 mg/dL (8.4-10.2) 04/14/21 05:38 Total Bilirubin 0.30 mg/dL (0.1-1.2) 04/13/21 17:44 AST 121 units/L (5-40) H 04/13/21 17:44 ALT 59 units/L (7-56) H 04/13/21 17:44 Alkaline Phosphatase 197 units/L (35-129) H 04/13/21 17:44 Troponin T 0.305 ng/mL (0.00-0.029) H* 04/14/21 05:38 Total Protein 7.9 g/dL (6.3-8.2) 04/13/21 17:44 Albumin 4.3 g/dL (3.9-5) 04/13/21 17:44 Albumin/Globulin Ratio 1.2 % 04/13/21 17:44 Triglycerides 72 mg/dL (2-149) 04/13/21 20:44 Cholesterol 209 mg/dL (50-199) H 04/13/21 20:44 LDL Cholesterol Direct 158 mg/dL (50-130) H 04/13/21 20:44 HDL Cholesterol 47 mg/dL (40-59) 04/13/21 20:44 Cholesterol/HDL Ratio 4.44 % 04/13/21 20:44 Lipase 84 units/L (13-60) H 04/13/21 17:44 Active Medications - Current Medications Current Medications: Generic Name Dose Route Start Last Admin Trade Name Freq PRN Reason Stop Dose Admin Acetaminophen 650 mg 04/13/21 21:50 Acetaminophen 325 Mg Tab PO Q6H PRN Pain, Mild (1-3) Aspirin 325 mg 04/14/21 10:00 Aspirin Ec 325 Mg Tab PO QDAY [facility] Atorvastatin Calcium 80 mg 04/14/21 22:00 Atorvastatin 40 Mg Tab PO QHS [facility] Clopidogrel Bisulfate 75 mg 04/14/21 11:00 Clopidogrel 75 Mg Tab PO QDAY [facility] Heparin Sodium (Porcine) 4,000 unit 04/14/21 10:00 Heparin 10,000 Units/10 Ml Vial IV 04/14/21 11:00 ONCE [facility] Heparin Sodium (Porcine) 3,100 unit 04/14/21 11:00 Heparin 10,000 Units/10 Ml Vial 40 unit/kg (3100 unit) IV Q6H PRN Anti-Xa Assay < 0.1 units/ml Sodium Chloride 500 mls @ 50 mls/hr 04/14/21 10:00 Nacl 0.9% 500 Ml IV 04/14/21 19:59 DIRECT [facility] Heparin Sodium/Sodium Chloride 25,000 unit in 500 mls @ 20 mls/hr 04/14/21 11:00 Heparin/ 0.45% Nacl-25,000 Unit/500 Ml IV 04/15/21 04:00 TITRATE [facility] Protocol 1,000 UNITS/HR Lorazepam 4 mg 04/13/21 21:53 Lorazepam 2 Mg/Ml Vial IV Q1HR PRN CIWA-Ar 16-25 Lorazepam 2 mg 04/13/21 21:55 04/14/21 09:22 Lorazepam 2 Mg/Ml Vial IV 2 mg Q1HR PRN Administration CIWA-Ar 8-15 Magnesium Hydroxide 30 ml 04/13/21 21:50 Magnesium Hydroxide (Mom) Oral Liqd Udc PO Q4H PRN Constipation Metoprolol Tartrate 50 mg 04/14/21 10:00 Metoprolol Tartrate 50 Mg Tab PO BID [facility] Morphine Sulfate 2 mg 04/13/21 21:50 Morphine 4 Mg/1 Ml Inj IV Q5MIN PRN Chest Pain Nitroglycerin 0.4 mg 04/13/21 21:50 Nitroglycerin 0.4 Mg Tab Subl SL Q5M PRN Chest Pain Ondansetron HCl 4 mg 04/13/21 21:50 04/14/21 09:22 Ondansetron 4 Mg/2 Ml Inj IV 4 mg Q8H PRN Administration Nausea And Vomiting Pantoprazole Sodium 40 mg 04/14/21 10:00 Pantoprazole 40 Mg Tab PO QDAY [facility] Sodium Chloride 10 ml 04/13/21 21:50 Sodium Chloride 0.9% 10 Ml Flush Syringe IV PRN PRN LINE FLUSH Sodium Chloride 10 ml 04/13/21 22:00 04/13/21 22:40 Sodium Chloride 0.9% 10 Ml Flush Syringe IV 10 ml BID STUART Administration Tramadol HCl 50 mg 04/13/21 21:50 Tramadol 50 Mg Tab PO Q6H PRN Pain, Moderate (4-6)
[2021-04-14] MEDS: METOPROLOL TARTRATE 50 MG TAB PO SCH ×2 (10:47→22:17)
[2021-04-14] MEDS: ASPIRIN EC 325 MG TAB PO SCH (10:49)
[2021-04-14] MEDS: CLOPIDOGREL 75 MG TAB PO SCH (10:50)
[2021-04-14] MEDS: PANTOPRAZOLE 40 MG TAB PO SCH (10:50)
[2021-04-14] MEDS ORDERED: HEPARIN 10,000 UNITS/10 ML VIAL IV PRN (11:00)
[2021-04-14] MEDS ORDERED: HEPARIN/ 0.45% NACL DRIP 25,000 UNIT/500 ML BAG IV SCH (11:00)
--- NOTE | 2021-04-14 13:20 | Electrocardiograph Report ---
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
--- NOTE | 2021-04-14 13:22 | Electrocardiograph Report ---
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
--- NOTE | 2021-04-14 13:23 | Electrocardiograph Report ---
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
[2021-04-14 13:29] LABS: Hematocrit 35.8 % (35.5-45.6); Hemoglobin 11.5 gm/dl (11.8-15.2)
[2021-04-14 13:39] LABS: INR 1.12 (0.87-1.13)
--- NOTE | 2021-04-14 16:35 | Consultation ---
History of Present Illness Consult date: 04/14/21 Requesting physician: CATHERINE MINAYA Consult reason: chest pain History of present illness: Patient is a 55 y/o male with a pmhx of CAD s/p TOÑO in RCA in 2004, h/o cardiac arrest, HTN, and HLD who presented to the ED for a of chest pain. The patient reports that yesterday that after he was eating he felt some pressure in his chest that radiated to his left side. He reports it felt like when he previously had a heart attack. He rates the pressure at 10/10 and states the pain was associated with nausea, vomiting, and diaphoresis. He denies any palpitations or difficulty breathing. He says he felt better if he breathed deeply. At the time of the interview the patient reports that his pain had decreased to a 4/10. He states that he has not followed up with a cardiologists in about 10 years and does not take medications. Past History Past Medical History: acute MD, CAD, COPD, hypertension, other (H/O GI bleed) Past Surgical History: PTCA Social history: smoking (1 Pack per day), alcohol abuse (Daily alcohol Intake) Family history: CAD Medications and Allergies Allergies Allergy/AdvReac Type Severity Reaction Status Date / Time No Known Allergies Allergy Verified 01/29/19 12:21 Home Medications Medication Instructions Recorded Confirmed Last Taken Type Citalopram [celeXA] 20 mg PO QDAY 12/27/17 04/14/21 12/26/17 History Esomeprazole Magnesium [NexIUM] 40 mg PO QDAY #30 capsule. 01/29/19 04/14/21 Unknown Rx Active Meds: Active Medications Acetaminophen (Acetaminophen 325 Mg Tab) 650 mg PO Q6H PRN PRN Reason: Pain, Mild (1-3) Aspirin (Aspirin Ec 325 Mg Tab) 325 mg PO QDAY [facility] Last Admin: 04/14/21 10:49 Dose: 325 mg Documented by: Atorvastatin Calcium (Atorvastatin 40 Mg Tab) 80 mg PO QHS [facility] Citalopram Hydrobromide (Citalopram 20 Mg Tab) 20 mg PO QDAY [facility] Clopidogrel Bisulfate (Clopidogrel 75 Mg Tab) 75 mg PO QDAY [facility] Last Admin: 04/14/21 10:50 Dose: 75 mg Documented by: Heparin Sodium (Porcine) (Heparin 10,000 Units/10 Ml Vial) 3,100 unit 40 unit/kg (3100 unit) IV Q6H PRN PRN Reason: Anti-Xa Assay < 0.1 units/ml Last Admin: 04/14/21 12:58 Dose: 3,100 unit Documented by: Sodium Chloride (Nacl 0.9% 500 Ml) 500 mls @ 50 mls/hr IV DIRECT STUART Stop: 04/14/21 19:59 Heparin Sodium/Sodium Chloride (Heparin/ 0.45% Nacl-25,000 Unit/500 Ml) 25,000 unit in 500 mls @ 20 mls/hr IV TITRATE [facility]UART; Protocol Stop: 04/15/21 04:00 Last Admin: 04/14/21 12:55 Dose: 1,000 units/hr, 20 mls/hr Documented by: Lorazepam (Lorazepam 2 Mg/Ml Vial) 4 mg IV Q1HR PRN PRN Reason: JORDAN-aHi 16-25 Lorazepam (Lorazepam 2 Mg/Ml Vial) 2 mg IV Q1HR PRN PRN Reason: CIWA-Hai 8-15 Last Admin: 04/14/21 14:40 Dose: 2 mg Documented by: Magnesium Hydroxide (Magnesium Hydroxide (Mom) Oral Liqd Udc) 30 ml PO Q4H PRN PRN Reason: Constipation Metoprolol Tartrate (Metoprolol Tartrate 50 Mg Tab) 50 mg PO BID [facility] Last Admin: 04/14/21 10:47 Dose: 50 mg Documented by: Morphine Sulfate (Morphine 4 Mg/1 Ml Inj) 2 mg IV Q5MIN PRN PRN Reason: Chest Pain Nitroglycerin (Nitroglycerin 0.4 Mg Tab Subl) 0.4 mg SL Q5M PRN PRN Reason: Chest Pain Ondansetron HCl (Ondansetron 4 Mg/2 Ml Inj) 4 mg IV Q8H PRN PRN Reason: Nausea And Vomiting Last Admin: 04/14/21 14:40 Dose: 4 mg Documented by: Pantoprazole Sodium (Pantoprazole 40 Mg Tab) 40 mg PO QDAY [facility] Last Admin: 04/14/21 10:50 Dose: 40 mg Documented by: Sodium Chloride (Sodium Chloride 0.9% 10 Ml Flush Syringe) 10 ml IV PRN PRN PRN Reason: LINE FLUSH Sodium Chloride (Sodium Chloride 0.9% 10 Ml Flush Syringe) 10 ml IV BID [facility] Last Admin: 04/14/21 12:51 Dose: 10 ml Documented by: Tramadol HCl (Tramadol 50 Mg Tab) 50 mg PO Q6H PRN PRN Reason: Pain, Moderate (4-6) Review of Systems All systems: negative Constitutional: sweats, no weight loss, no weight gain, no fever Ears, nose, mouth and throat: no nasal congestion, no nasal discharge, no sinus pressure Cardiovascular: chest pain, no orthopnea, no palpitations, no rapid/irregular heart beat, no edema Respiratory: no cough, no cough with sputum, no excessive sputum, no hemoptysis, no shortness of breath, no dyspnea on exertion Gastrointestinal: nausea, vomiting, no diarrhea Musculoskeletal: arm numbness/tingling, no neck stiffness, no neck pain, no shooting arm pain Neurological: no head injury, no transient paralysis, no paralysis, no weakness, no parathesias Psychiatric: no anxiety, no memory loss Endocrine: no cold intolerance, no heat intolerance Hematologic/Lymphatic: no easy bruising, no easy bleeding Physical Examination Last Vital Signs Temp 98.6 F 04/13/21 21:24 Pulse 102 H 04/14/21 10:47 Resp 18 04/14/21 15:38 BP 126/69 04/14/21 13:01 Pulse Ox 98 04/14/21 15:38 General appearance: no acute distress HEENT: Positive: PERRL Neck: Positive: trachea midline Cardiac: Positive: Reg Rate and Rhythm, Regular Rate, S1/S2 Lungs: Positive: clear to auscultation, Normal Breath Sounds Neuro: Positive: Grossly Intact Abdomen: Positive: Soft, Active Bowel Sounds Skin: Negative: Rash, Suspicious Lesions, Ulceration Extremities: Present: upper extr. pulses, lower extr. pulses. Absent: edema Results 04/14/21 12:56 04/14/21 05:38 Cardiac Enzymes 04/13/21 Range/Units 17:44 AST 121 H (5-40) units/L Coagulation 04/14/21 Range/Units 12:56 PT 14.9 (12.2-14.9) Sec. INR 1.12 (0.87-1.13) APTT 32.0 (24.2-36.6) Sec. Lipids 04/13/21 Range/Units 20:44 Triglycerides 72 (2-149) mg/dL Cholesterol 209 H (50-199) mg/dL HDL Cholesterol 47 (40-59) mg/dL Cholesterol/HDL Ratio 4.44 % CBC 04/13/21 04/14/21 04/14/21 Range/Units 17:44 05:38 12:56 WBC 6.6 6.5 (4.5-11.0) K/mm3 RBC 4.41 4.18 (3.65-5.03) M/mm3 Hgb 11.7 L 11.2 L 11.5 L (11.8-15.2) gm/dl Hct 36.2 33.4 L 35.8 (35.5-45.6) % Plt Count 177 173 203 (140-440) K/mm3 Lymph # (Auto) 0.8 L 1.3 (1.2-5.4) K/mm3 [place] # (Auto) 0.4 0.5 (0.0-0.8) K/mm3 Eos # (Auto) 0.1 0.1 (0.0-0.4) K/mm3 Baso # (Auto) 0.1 0.1 (0.0-0.1) K/mm3 Comprehensive Metabolic Panel 04/13/21 04/14/21 04/14/21 Range/Units 17:44 01:17 05:38 Sodium 137 139 140 (137-145) mmol/L Potassium 3.6 4.2 4.1 (3.6-5.0) mmol/L Chloride 99.1 101.3 99.8 (98-107) mmol/L Carbon Dioxide 21 L 27 29 (22-30) mmol/L BUN 5 L 5 L 7 L (9-20) mg/dL Creatinine 0.5 L 0.5 L 0.5 L (0.8-1.3) mg/dL Glucose 135 H 109 H 113 H (75-100) mg/dL Calcium 8.7 8.6 9.1 (8.4-10.2) mg/dL AST 121 H (5-40) units/L ALT 59 H (7-56) units/L Alkaline Phosphatase 197 H (35-129) units/L Total Protein 7.9 (6.3-8.2) g/dL Albumin 4.3 (3.9-5) g/dL - Imaging and Cardiology Echo: report reviewed EKG: report reviewed, image reviewed EKG interpretations - Telemetry EKG Rhythm: Sinus Tachycardia - EKG Sinus rhythms and dysrhythmias: sinus tachycardia Assessment and Plan NSTEMI CAD s/p TOÑO in RCA 2004 * Patient EKG shows sinus tachycardia 109 with no acute ischemic changes. Troponins 0.15->.268->0.3 * Patient stress test was canceled and patient scheduled for LHC in AM. NPO after midnight * Initiated metoprolol 50mg PO BID, Plavix 75mg PO QD, atorvastatin 80mg QHS, and Heparin gtt * Echo 04/13/2021- EF 50-55%, right ventricular systolic function normal, left and right atrium are normal, normal echo H/o Alcohol abuse * [facility] protocol intitiated * Management per primary team [facility] in AM. NPO after midnight Patient seen in conjunction with Dr. Nix who agrees with this plan of care. Will continue to follow - Patient Problems (1) NSTEMI (non-ST elevated myocardial infarction) Current Visit: Yes Status: Acute (2) Alcohol abuse Current Visit: Yes Status: Acute (3) Chest pain Current Visit: Yes Status: Acute (4) Elevated troponin Current Visit: Yes Status: Acute (5) History of heart artery stent Current Visit: Yes Status: Acute (6) COPD (chronic obstructive pulmonary disease) Current Visit: No Status: Acute Qualifiers: COPD type: chronic bronchitis
[2021-04-15] MEDS: LORazepam 2 MG/ML VIAL IV PRN ×6 (01:49→21:25)
[2021-04-15 06:40] LABS: Basophils # (Auto) 0.1 K/mm3 (0.0-0.1); Basophils % (Auto) 1.3 % (0.0-1.8); Eosinophils # (Auto) 0.2 K/mm3 (0.0-0.4); Eosinophils % (Auto) 2.5 % (0.0-4.3); Hematocrit 36.8 % (35.5-45.6); Hemoglobin 11.9 gm/dl (11.8-15.2); Lymphocytes # (Auto) 1.3 K/mm3 (1.2-5.4); Lymphocytes % (Auto) 19.1 % (13.4-35.0); Mean Corpuscular HGB Conc 32 % (32-34); Mean Corpuscular Volume 81 fl (84-94); Monocytes # (Auto) 0.5 K/mm3 (0.0-0.8); Platelet Count 166 K/mm3 (140-440); Red Blood Count 4.53 M/mm3 (3.65-5.03); Red Cell Distribution Width 19.5 % (13.2-15.2)
[2021-04-15 06:47] LABS: INR 1.14 (0.87-1.13)
[2021-04-15 06:57] LABS: Partial Thromboplastin Time 96.3 Sec. (24.2-36.6)
[2021-04-15 07:01] LABS: Blood Urea Nitrogen 10 mg/dL (9-20); Calcium 9.5 mg/dL (8.4-10.2); Hemolysis Index 0
[2021-04-15 07:03] LABS: BUN/Creatinine Ratio 20
--- NOTE | 2021-04-15 08:34 | Progress Note ---
Assessment and Plan Assessment and plan: --Alcohol withdrawal symptoms: Current Visit: Yes Status: Acute Continue CIWA protocol Patient will be counseled alcohol rehabilitation when more stable --Non-ST elevation [place]; Current Visit: Yes Status: Acute Left heart catheterization scheduled for today 04/15/2021 Patient is n.p.o. from midnight, However patient has acute alcohol withdrawal symptoms with delirium Heart catheter rescheduled for later date Echo; LV EF 50 to 55% -- Chest pain Current Visit: Yes Status: Acute Possible left heart catheterization today -- HTN (hypertension) Current Visit: No Status: Acute Continue current antihypertensives, as needed medications --Dyslipidemia; Current Visit: Yes Status: Acute Continue statin, low-cholesterol diet --History of chronic alcohol abuse Current Visit: Yes Status: Acute Counseling done, advised to quit alcohol intake Seek alcohol rehabilitation, alcohol Anonymous support group Monitor for alcohol withdrawal symptoms --Nicotine dependence Current Visit: Yes Status: Acute Patient counseled on quitting tobacco abuse. Smoking cessation, nicotine patch as needed --DVT prophylaxis Current Visit: No Status: Acute Patient placed on subcutaneous heparin. --Full code status Current Visit: Yes Status: Acute Patient is full code. We will closely monitor the patient and adjust the management as needed Cardiology evaluation recommendations noted and appreciated Follow heart catheter today Disposition per sales lead Restrain the patient for safety 04/15/2021; Patient with non-ST elevation WI, cardiology scheduled for left heart cath However had to cancel due to acute alcohol withdrawal symptoms Patient is on CIWA protocol Closely monitor discharge when stable History Interval history: I have seen and examined the patient at the bedside this morning Patient's chart and medications reviewed, patient was scheduled for left heart catheterization However patient with chronic alcohol use is having acute withdrawal symptoms/delirium agitation Cardiology canceled the heart cath, and will reschedule at a later date when patient is more stable Patient is restraint for safety On CIWA protocol Vital signs noted Hospitalist Physical - Constitutional Vitals: Temp Pulse Resp BP Pulse Ox 98.0 F 75 18 137/74 95 04/14/21 23:19 04/15/21 04:20 04/14/21 23:19 04/14/21 23:19 04/15/21 08:20 General appearance: Present: mild distress, well-nourished, other (Agitated and confused/alcohol delirium and tremulousness) - EENT Eyes: Present: PERRL, EOM intact - Neck Neck: Present: supple, normal ROM - Respiratory Respiratory effort: normal Respiratory: bilateral: diminished, negative: rales, rhonchi, wheezing - Cardiovascular Rhythm: regular Heart Sounds: Present: S1 & S2 - Extremities Extremities: no ischemia, No edema - Abdominal General gastrointestinal: soft, non-tender, non-distended, normal bowel sounds - Integumentary Integumentary: Present: clear, warm - Psychiatric Psychiatric: appropriate mood/affect, cooperative - Neurologic Neurologic: CNII-XII intact, moves all extremities HEART Score - HEART Score EKG: Normal Age: 45-65 Risk factors: > 3 risk factors or hx of atherosclerotic disease Troponin: Troponin T 0.305 ng/mL (0.00-0.029) H* 04/14/21 05:38 Troponin: < normal limit Results - Labs CBC & Chem 7: 04/15/21 04:21 04/15/21 04:21 Labs: Laboratory Last Values WBC 6.8 K/mm3 (4.5-11.0) 04/15/21 04:21 RBC 4.53 M/mm3 (3.65-5.03) 04/15/21 04:21 Hgb 11.9 gm/dl (11.8-15.2) 04/15/21 04:21 Hct 36.8 % (35.5-45.6) 04/15/21 04:21 MCV 81 fl (84-94) L 04/15/21 04:21 MCH 26 pg (28-32) L 04/15/21 04:21 MCHC 32 % (32-34) 04/15/21 04:21 RDW 19.5 % (13.2-15.2) H 04/15/21 04:21 Plt Count 166 K/mm3 (140-440) 04/15/21 04:21 Lymph % (Auto) 19.1 % (13.4-35.0) 04/15/21 04:21 [place] % (Auto) 7.0 % (0.0-7.3) 04/15/21 04:21 Eos % (Auto) 2.5 % (0.0-4.3) 04/15/21 04:21 Baso % (Auto) 1.3 % (0.0-1.8) 04/15/21 04:21 Lymph # (Auto) 1.3 K/mm3 (1.2-5.4) 04/15/21 04:21 [place] # (Auto) 0.5 K/mm3 (0.0-0.8) 04/15/21 04:21 Eos # (Auto) 0.2 K/mm3 (0.0-0.4) 04/15/21 04:21 Baso # (Auto) 0.1 K/mm3 (0.0-0.1) 04/15/21 04:21 Seg Neutrophils % 70.1 % (40.0-70.0) H 04/15/21 04:21 Seg Neutrophils # 4.8 K/mm3 (1.8-7.7) 04/15/21 04:21 PT 15.2 Sec. (12.2-14.9) H 04/15/21 04:21 INR 1.14 (0.87-1.13) H 04/15/21 04:21 APTT 96.3 Sec. (24.2-36.6) H* 04/15/21 04:21 Heparin Anti-Xa Level 0.30 U.I./ml (0.3-0.7) 04/15/21 04:21 Sodium 140 mmol/L (137-145) 04/15/21 04:21 Potassium 3.6 mmol/L (3.6-5.0) 04/15/21 04:21 Chloride 102.5 mmol/L (98-107) 04/15/21 04:21 Carbon Dioxide 27 mmol/L (22-30) 04/15/21 04:21 Anion Gap 14 mmol/L 04/15/21 04:21 BUN 10 mg/dL (9-20) 04/15/21 04:21 Creatinine 0.5 mg/dL (0.8-1.3) L 04/15/21 04:21 Estimated GFR > 60 ml/min 04/15/21 04:21 BUN/Creatinine Ratio 20 % 04/15/21 04:21 Glucose 115 mg/dL (75-100) H 04/15/21 04:21 POC Glucose 136 mg/dL (70-105) H 04/15/21 06:57 Calcium 9.5 mg/dL (8.4-10.2) 04/15/21 04:21 Total Bilirubin 0.30 mg/dL (0.1-1.2) 04/13/21 17:44 AST 121 units/L (5-40) H 04/13/21 17:44 ALT 59 units/L (7-56) H 04/13/21 17:44 Alkaline Phosphatase 197 units/L (35-129) H 04/13/21 17:44 Troponin T 0.305 ng/mL (0.00-0.029) H* 04/14/21 05:38 Total Protein 7.9 g/dL (6.3-8.2) 04/13/21 17:44 Albumin 4.3 g/dL (3.9-5) 04/13/21 17:44 Albumin/Globulin Ratio 1.2 % 04/13/21 17:44 Triglycerides 72 mg/dL (2-149) 04/13/21 20:44 Cholesterol 209 mg/dL (50-199) H 04/13/21 20:44 LDL Cholesterol Direct 158 mg/dL (50-130) H 04/13/21 20:44 HDL Cholesterol 47 mg/dL (40-59) 04/13/21 20:44 Cholesterol/HDL Ratio 4.44 % 04/13/21 20:44 Lipase 84 units/L (13-60) H 04/13/21 17:44 Blood Type O POSITIVE 04/15/21 04:21 Antibody Screen Negative 04/15/21 04:21 [place]/IV: Voiding Method Urinal Active Medications - Current Medications Current Medications: Generic Name Dose Route Start Last Admin Trade Name Freq PRN Reason Stop Dose Admin Acetaminophen 650 mg 04/13/21 21:50 Acetaminophen 325 Mg Tab PO Q6H PRN Pain, Mild (1-3) Aspirin 325 mg 04/14/21 10:00 04/14/21 10:49 Aspirin Ec 325 Mg Tab PO 325 mg QDAY STUART Administration Atorvastatin Calcium 80 mg 04/14/21 22:00 04/14/21 22:17 Atorvastatin 40 Mg Tab PO 80 mg QHS STUART Administration Citalopram Hydrobromide 20 mg 04/15/21 10:00 Citalopram 20 Mg Tab PO QDAY STUART Clopidogrel Bisulfate 75 mg 04/14/21 11:00 04/14/21 10:50 Clopidogrel 75 Mg Tab PO 75 mg QDAY STUART Administration Heparin Sodium (Porcine) 3,100 unit 04/14/21 11:00 04/14/21 12:58 Heparin 10,000 Units/10 Ml Vial 40 unit/kg (3100 unit) 3,100 unit IV Administration Q6H PRN Anti-Xa Assay < 0.1 units/ml Lorazepam 4 mg 04/13/21 21:53 04/15/21 07:30 Lorazepam 2 Mg/Ml Vial IV 4 mg Q1HR PRN Administration CIWA-Ar 16-25 Lorazepam 2 mg 04/13/21 21:55 04/14/21 22:16 Lorazepam 2 Mg/Ml Vial IV 2 mg Q1HR PRN Administration CIWA-Ar 8-15 Magnesium Hydroxide 30 ml 04/13/21 21:50 Magnesium Hydroxide (Mom) Oral Liqd Udc PO Q4H PRN Constipation Metoprolol Tartrate 50 mg 04/14/21 10:00 04/14/21 22:17 Metoprolol Tartrate 50 Mg Tab PO 50 mg BID STUART Administration Morphine Sulfate 2 mg 04/13/21 21:50 Morphine 4 Mg/1 Ml Inj IV Q5MIN PRN Chest Pain Nitroglycerin 0.4 mg 04/13/21 21:50 Nitroglycerin 0.4 Mg Tab Subl SL Q5M PRN Chest Pain Ondansetron HCl 4 mg 04/13/21 21:50 04/14/21 22:16 Ondansetron 4 Mg/2 Ml Inj IV 4 mg Q8H PRN Administration Nausea And Vomiting Pantoprazole Sodium 40 mg 04/14/21 10:00 04/14/21 10:50 Pantoprazole 40 Mg Tab PO 40 mg QDAY STUART Administration Sodium Chloride 10 ml 04/13/21 21:50 Sodium Chloride 0.9% 10 Ml Flush Syringe IV PRN PRN LINE FLUSH Sodium Chloride 10 ml 04/13/21 22:00 04/14/21 22:18 Sodium Chloride 0.9% 10 Ml Flush Syringe IV 10 ml BID STUART Administration Tramadol HCl 50 mg 04/13/21 21:50 Tramadol 50 Mg Tab PO Q6H PRN Pain, Moderate (4-6)
[2021-04-15] MEDS: METOPROLOL TARTRATE 50 MG TAB PO SCH ×2 (09:36→21:25)
[2021-04-15] MEDS: CITALOPRAM 20 MG TAB PO SCH (09:36)
[2021-04-15] MEDS: CLOPIDOGREL 75 MG TAB PO SCH (09:36)
[2021-04-15] MEDS: PANTOPRAZOLE 40 MG TAB PO SCH (09:36)
[2021-04-15] MEDS: ASPIRIN EC 325 MG TAB PO SCH (09:36)
--- NOTE | 2021-04-15 19:14 | Progress Note ---
Assessment and Plan [facility] postponed this AM due to severe delirium secondary to EtOH withdrawal. Will re-attempt cardiac catheterization when pt is clinically stable. Unable to resume heparin gtt this AM d/t pt's level of agitation and inability to maintain adequate IV line. Will resume when able. Continue bASA, Plavix, statin, & BB. Pt seen in conjunction with Dr. Nix, who agrees with the assessment and plan of care. - Patient Problems (1) Alcohol withdrawal Current Visit: Yes Status: Acute Qualifiers: Complication of substance-induced condition: with delirium Qualified Code(s): F10.231 - Alcohol dependence with withdrawal delirium (2) Chest pain Current Visit: Yes Status: Acute (3) NSTEMI (non-ST elevated myocardial infarction) Current Visit: Yes Status: Acute (4) CAD (coronary artery disease) Current Visit: Yes Status: Chronic Qualifiers: Coronary Disease-Associated Artery/Lesion type: [place] artery (5) Stented coronary artery Current Visit: Yes Status: Chronic (6) HTN (hypertension) Current Visit: Yes Status: Chronic Qualifiers: Hypertension type: primary hypertension Qualified Code(s): I10 - Essential (primary) hypertension (7) HLD (hyperlipidemia) Current Visit: Yes Status: Chronic Qualifiers: Hyperlipidemia type: mixed hyperlipidemia Qualified Code(s): E78.2 - Mixed hyperlipidemia (8) Nicotine dependence Current Visit: Yes Status: Chronic (9) EtOH dependence Current Visit: Yes Status: Chronic Subjective Date of service: 04/15/21 Principal diagnosis: NSTEMI Interval history: Agitated and hallucinating. In restraints. Tele reviewed - SR 80s, no events. Objective Last Vital Signs Temp 98.2 F 04/15/21 15:39 Pulse 89 04/15/21 15:39 Resp 18 04/15/21 15:39 BP 150/89 04/15/21 15:39 Pulse Ox 95 04/15/21 15:39 - Physical Examination General: No Apparent Distress HEENT: Positive: EOMI, Normocephaly Neck: Positive: neck supple, trachea midline Cardiac: Positive: Reg Rate and Rhythm, S1/S2 Lungs: Positive: clear to auscultation Neuro: Positive: Grossly Intact Abdomen: Positive: Soft Skin: Negative: Rash Musculoskeletal: No Fluid Collection Extremities: Present: lower extr. pulses. Absent: edema - Labs and Meds Coagulation 04/15/21 Range/Units 04:21 PT 15.2 H (12.2-14.9) Sec. INR 1.14 H (0.87-1.13) APTT 96.3 H* (24.2-36.6) Sec. CBC 04/15/21 Range/Units 04:21 WBC 6.8 (4.5-11.0) K/mm3 RBC 4.53 (3.65-5.03) M/mm3 Hgb 11.9 (11.8-15.2) gm/dl Hct 36.8 (35.5-45.6) % Plt Count 166 (140-440) K/mm3 Lymph # (Auto) 1.3 (1.2-5.4) K/mm3 [place] # (Auto) 0.5 (0.0-0.8) K/mm3 Eos # (Auto) 0.2 (0.0-0.4) K/mm3 Baso # (Auto) 0.1 (0.0-0.1) K/mm3 Comprehensive Metabolic Panel 04/15/21 Range/Units 04:21 Sodium 140 (137-145) mmol/L Potassium 3.6 (3.6-5.0) mmol/L Chloride 102.5 (98-107) mmol/L Carbon Dioxide 27 (22-30) mmol/L BUN 10 (9-20) mg/dL Creatinine 0.5 L (0.8-1.3) mg/dL Glucose 115 H (75-100) mg/dL Calcium 9.5 (8.4-10.2) mg/dL - Imaging and Cardiology EKG: report reviewed, image reviewed Echo: report reviewed (04/13/2021 - normal EF, mild diastolic dysfxn) Cardiac cath: pending - Telemetry EKG Rhythm: Sinus Rhythm - EKG Sinus rhythms and dysrhythmias: sinus tachycardia Repolarization changes or abnormalities: nonspecific abnormality, ST segment, and/or T wave - Allied health notes Allied health notes reviewed: nursing
[2021-04-16 05:39] LABS: Hematocrit 34.4 % (35.5-45.6); Hemoglobin 11.3 gm/dl (11.8-15.2)
[2021-04-16 05:58] LABS: Creatine Kinase MB 3.4 ng/mL (0.0-4.0)
[2021-04-16 06:02] LABS: Blood Urea Nitrogen 12 mg/dL (9-20); Calcium 9.5 mg/dL (8.4-10.2); Hemolysis Index 1
[2021-04-16 06:14] LABS: BUN/Creatinine Ratio 24
[2021-04-16] MEDS: METOPROLOL TARTRATE 50 MG TAB PO SCH ×2 (09:35→22:50)
[2021-04-16] MEDS: CLOPIDOGREL 75 MG TAB PO SCH (09:54)
[2021-04-16] MEDS: ASPIRIN EC 325 MG TAB PO SCH (09:54)
[2021-04-16] MEDS: CITALOPRAM 20 MG TAB PO SCH (09:54)
[2021-04-16] MEDS: PANTOPRAZOLE 40 MG TAB PO SCH (09:54)
--- NOTE | 2021-04-16 10:04 | Electrocardiograph Report ---
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
--- NOTE | 2021-04-16 10:12 | Electrocardiograph Report ---
[facility] Test Date: 2021-04-15 Test Time: 11:36:40 Pat Name: BRITTON ARVIZU Department: Room: A454 1 Gender: M Stereotype Caster: KELLY : 1965 Requested By: CATHERINE MINAYA Order Number: [id number] Reading MD: Jorge Luis Chávez Measurements Intervals [place] Rate: 77 P: 79 MI: 173 QRS: 46 QRSD: 80 T: 46 QT: 394 QTc: 447 Interpretive Statements Sinus rhythm NSSTTW'S Compared to ECG 04/15/2021 08:23:25 No significant changes Electronically Signed On 04-16-2021 10:12:11 EDT by Jorge Luis Chávez
--- NOTE | 2021-04-16 17:42 | Progress Note ---
Assessment and Plan Plan to re-attempt [facility] on Monday AM if pt remains clinically stable. Continue bASA, Plavix, statin, & BB. Pt seen in conjunction with Dr. Nix, who agrees with the assessment and plan of care. - Patient Problems (1) Alcohol withdrawal Current Visit: Yes Status: Acute Qualifiers: Complication of substance-induced condition: with delirium Qualified Code(s): F10.231 - Alcohol dependence with withdrawal delirium (2) Chest pain Current Visit: Yes Status: Acute (3) NSTEMI (non-ST elevated myocardial infarction) Current Visit: Yes Status: Acute (4) CAD (coronary artery disease) Current Visit: Yes Status: Chronic Qualifiers: Coronary Disease-Associated Artery/Lesion type: [place] artery (5) Stented coronary artery Current Visit: Yes Status: Chronic (6) HTN (hypertension) Current Visit: Yes Status: Chronic Qualifiers: Hypertension type: primary hypertension Qualified Code(s): I10 - Essential (primary) hypertension (7) HLD (hyperlipidemia) Current Visit: Yes Status: Chronic Qualifiers: Hyperlipidemia type: mixed hyperlipidemia Qualified Code(s): E78.2 - Mixed hyperlipidemia (8) Nicotine dependence Current Visit: Yes Status: Chronic (9) EtOH dependence Current Visit: Yes Status: Chronic Subjective Date of service: 04/16/21 Principal diagnosis: NSTEMI Interval history: Less agitated today. Still in restraints. Denies chest pain. Tele reviewed - SR 60s, no events. Objective Last Vital Signs Temp 99.4 F 04/16/21 11:30 Pulse 68 04/16/21 11:30 Resp 18 04/16/21 11:30 BP 131/73 04/16/21 11:30 Pulse Ox 95 04/16/21 11:30 - Physical Examination General: No Apparent Distress HEENT: Positive: EOMI, Normocephaly Neck: Positive: neck supple, trachea midline Cardiac: Positive: Reg Rate and Rhythm, S1/S2 Lungs: Positive: clear to auscultation Neuro: Positive: Grossly Intact Abdomen: Positive: Soft. Negative: Tender Skin: Negative: Rash Musculoskeletal: No Fluid Collection Extremities: Present: lower extr. pulses. Absent: edema - Labs and Meds Cardiac Enzymes 04/16/21 Range/Units 05:08 CK-MB (CK-2) 3.4 (0.0-4.0) ng/mL CBC 04/16/21 Range/Units 05:08 Hgb 11.3 L (11.8-15.2) gm/dl Hct 34.4 L (35.5-45.6) % Plt Count 167 (140-440) K/mm3 Comprehensive Metabolic Panel 04/16/21 Range/Units 05:08 Sodium 141 (137-145) mmol/L Potassium 3.4 L (3.6-5.0) mmol/L Chloride 105.6 (98-107) mmol/L Carbon Dioxide 23 (22-30) mmol/L BUN 12 (9-20) mg/dL Creatinine 0.5 L (0.8-1.3) mg/dL Glucose 104 H (75-100) mg/dL Calcium 9.5 (8.4-10.2) mg/dL - Imaging and Cardiology EKG: report reviewed, image reviewed Echo: report reviewed (04/13/2021 - normal EF, mild diastolic dysfxn) Cardiac cath: pending - Telemetry EKG Rhythm: Sinus Rhythm - EKG Sinus rhythms and dysrhythmias: sinus tachycardia Repolarization changes or abnormalities: nonspecific abnormality, ST segment, and/or T wave - Allied health notes Allied health notes reviewed: nursing
[2021-04-17 07:02] LABS: Blood Urea Nitrogen 16 mg/dL (9-20); Calcium 8.9 mg/dL (8.4-10.2); Hemolysis Index 16
[2021-04-17 07:22] LABS: BUN/Creatinine Ratio 27
--- NOTE | 2021-04-17 07:35 | Progress Note ---
Assessment and Plan Assessment and Plan Assessment and plan: --Non-ST elevation [place]; Current Visit: Yes Status: Acute Left heart catheterization scheduled for today 04/16/2021 Patient is n.p.o. from midnight, However patient has acute alcohol withdrawal symptoms with delirium Heart catheter rescheduled for later date--probably Monday Echo; LV EF 50 to 55% --Alcohol withdrawal symptoms: Current Visit: Yes Status: Acute Continue CIWA protocol Patient will be counseled alcohol rehabilitation when more stable -- HTN (hypertension) Current Visit: No Status: Acute Continue current antihypertensives, as needed medications --Dyslipidemia; Current Visit: Yes Status: Acute Continue statin, low-cholesterol diet --History of chronic alcohol abuse Current Visit: Yes Status: Acute Counseling done, advised to quit alcohol intake Seek alcohol rehabilitation, alcohol Anonymous support group Monitor for alcohol withdrawal symptoms --Nicotine dependence Current Visit: Yes Status: Acute Patient counseled on quitting tobacco abuse. Smoking cessation, nicotine patch as needed --DVT prophylaxis Current Visit: No Status: Acute Patient placed on subcutaneous heparin. --Full code status Current Visit: Yes Status: Acute Patient is full code. We will closely monitor the patient and adjust the management as needed Cardiology evaluation recommendations noted and appreciated Left heart cath on Monday Disposition per motorsports technician Restraints for agitation as needed Subjective Date of service: 04/16/21 Principal diagnosis: NSTEMI Interval history: 55-year-old male with known history of coronary artery disease status post stent placement in the past, previous cardiac arrest, COPD, history of GI bleed and a strong family history of coronary artery disease presenting with to the emergency room today complaining of mid epigastric pain radiating to the upper chest. Pain is said to be constant and gets worse upon taking a deep breath. She has had associated nausea and vomiting prior to arrival in the emergency room. He denies any headaches, no dizziness or was diaphoretic. He had some tingling sensation in the left upper extremity. He denies any abdominal pain, no diarrhea, no hematuria or dysuria, no fever or chills. Patient denies any sick contacts and no recent travel. Denies any contact with anyone with COVID- 19. Patient admits that he has not been quite compliant with his medications and also has not had the Covid 19 vaccination. Initial work-up in the emergency room today reveals a troponin of less than 0.01 however subsequent troponin levels were elevated at 0.159 and 0.268. EKG showed no acute findings. Chest x-ray showed no acute findings. Glass Cleaning Machine Tender on-call was consulted by the ER physician who indicated that patient will be followed up in the a.m. Nitropaste was recommended. Anticoagulation was not recommended at this time. 04/14/2021 NSTEMI Left heart cath on 04/15/2021 04/15/2021; Patient with non-ST elevation [place], cardiology scheduled for left heart cath However had to cancel due to acute alcohol withdrawal symptoms Patient is on [facility] protocol Closely monitor discharge when stable 04/16/2021 Left heart cath postponed because of persistent agitation. To be rescheduled for a later date Patient calmer during my examination Objective - Constitutional Vitals: Vital Signs - 12hr 04/16/21 04/16/21 04/16/21 19:54 22:00 22:50 Temperature 97.9 F Pulse Rate 76 75 92 H Respiratory 18 18 Rate Blood Pressure 145/81 141/78 O2 Sat by Pulse 94 95 Oximetry 04/17/21 04/17/21 00:28 04:41 Temperature 98.2 F 98.5 F Pulse Rate 77 72 Respiratory 18 18 Rate Blood Pressure 128/66 124/68 O2 Sat by Pulse 95 97 Oximetry General appearance: Present: no acute distress, well-nourished - EENT Eyes: PERRL, EOM intact ENT: hearing intact, clear oral mucosa Ears: bilateral: normal - Neck Neck: supple, normal ROM - Respiratory Respiratory effort: normal Respiratory: bilateral: CTA - Breasts Breasts: normal - Cardiovascular Heart rate: 78 Rhythm: regular Heart Sounds: Present: S1 & S2. Absent: gallop, rub Extremities: pulses intact, No edema, normal color, Full ROM - Gastrointestinal General gastrointestinal: Present: soft, non-tender, non-distended, normal bowel sounds - Genitourinary Male genitourinary: normal - Integumentary Integumentary: clear, warm, dry - Musculoskeletal Musculoskeletal: 1, strength equal bilaterally - Neurologic Neurologic: moves all extremities - Psychiatric Psychiatric: appropriate mood/affect, intact judgment & insight, memory intact, agitated, depressed - Allied health notes Allied health notes reviewed: nursing, case management - Labs CBC & Chem 7: 04/16/21 05:08 04/17/21 03:47 Labs: Abnormal lab results 04/17/21 Range/Units 03:47 Potassium 3.3 L (3.6-5.0) mmol/L Creatinine 0.6 L (0.8-1.3) mg/dL HEART Score - HEART Score EKG: Normal Age: 45-65 Risk factors: > 3 risk factors or hx of atherosclerotic disease Troponin: Troponin T 0.114 ng/mL (0.00-0.029) H* D 04/16/21 05:08 Troponin: < normal limit
--- NOTE | 2021-04-17 07:58 | Progress Note ---
Assessment and Plan Assessment and Plan --Non-ST elevation OR; Current Visit: Yes Status: Acute Left heart catheterization scheduled for today 04/16/2021 Patient is n.p.o. from midnight, However patient has acute alcohol withdrawal symptoms with delirium Heart catheter rescheduled for later date--probably Monday Echo; LV EF 50 to 55% --Alcohol withdrawal symptoms: Current Visit: Yes Status: Acute Continue CIWA protocol Patient will be counseled alcohol rehabilitation when more stable -- HTN (hypertension) Current Visit: No Status: Acute Continue current antihypertensives, as needed medications --Dyslipidemia; Current Visit: Yes Status: Acute Continue statin, low-cholesterol diet --History of chronic alcohol abuse Current Visit: Yes Status: Acute Counseling done, advised to quit alcohol intake Seek alcohol rehabilitation, alcohol Anonymous support group Monitor for alcohol withdrawal symptoms --Nicotine dependence Current Visit: Yes Status: Acute Patient counseled on quitting tobacco abuse. Smoking cessation, nicotine patch as needed --DVT prophylaxis Current Visit: No Status: Acute Patient placed on subcutaneous heparin. --Full code status Current Visit: Yes Status: Acute Patient is full code. We will closely monitor the patient and adjust the management as needed Cardiology evaluation recommendations noted and appreciated Left heart cath on Monday Disposition per music arranger Restraints for agitation as needed Subjective Date of service: 04/17/21 Principal diagnosis: NSTEMI Interval history: 55-year-old male with known history of coronary artery disease status post stent placement in the past, previous cardiac arrest, COPD, history of GI bleed and a strong family history of coronary artery disease presenting with to the emergency room today complaining of mid epigastric pain radiating to the upper chest. Pain is said to be constant and gets worse upon taking a deep breath. She has had associated nausea and vomiting prior to arrival in the emergency room. He denies any headaches, no dizziness or was diaphoretic. He had some tingling sensation in the left upper extremity. He denies any abdominal pain, no diarrhea, no hematuria or dysuria, no fever or chills. Patient denies any sick contacts and no recent travel. Denies any contact with anyone with COVID- 19. Patient admits that he has not been quite compliant with his medications and also has not had the Covid 19 vaccination. Initial work-up in the emergency room today reveals a troponin of less than 0.01 however subsequent troponin levels were elevated at 0.159 and 0.268. EKG showed no acute findings. Chest x-ray showed no acute findings. Parachute Cushion Installer on-call was consulted by the ER physician who indicated that patient will be followed up in the a.m. Nitropaste was recommended. Anticoagulation was not recommended at this time. 04/14/2021 NSTEMI Left heart cath on 04/15/2021 04/15/2021; Patient with non-ST elevation OR, cardiology scheduled for left heart cath However had to cancel due to acute alcohol withdrawal symptoms Patient is on [facility] protocol Closely monitor discharge when stable 04/16/2021 Left heart cath postponed because of persistent agitation. To be rescheduled for a later date Patient calmer during my examination 04/17/2021 Left heart cath postponed to Monday Patient less agitated Continue CIWA protocol Objective - Constitutional Vitals: Vital Signs - 12hr 04/16/21 04/16/21 04/17/21 22:00 22:50 00:28 Temperature 98.2 F Pulse Rate 75 92 H 77 Respiratory 18 18 Rate Blood Pressure 141/78 128/66 O2 Sat by Pulse 95 95 Oximetry 04/17/21 04:41 Temperature 98.5 F Pulse Rate 72 Respiratory 18 Rate Blood Pressure 124/68 O2 Sat by Pulse 97 Oximetry General appearance: Present: no acute distress, well-nourished - EENT Eyes: PERRL, EOM intact ENT: hearing intact, clear oral mucosa Ears: bilateral: normal - Neck Neck: supple, normal ROM - Respiratory Respiratory effort: normal Respiratory: bilateral: CTA - Breasts Breasts: normal - Cardiovascular Heart rate: 78 Rhythm: regular Heart Sounds: Present: S1 & S2. Absent: gallop, rub Extremities: pulses intact, No edema, normal color, Full ROM - Gastrointestinal General gastrointestinal: Present: soft, non-tender, non-distended, normal bowel sounds - Genitourinary Male genitourinary: normal - Integumentary Integumentary: clear, warm, dry - Musculoskeletal Musculoskeletal: 1, strength equal bilaterally - Neurologic Neurologic: moves all extremities - Psychiatric Psychiatric: memory intact, appropriate mood/affect, intact judgment & insight - Labs CBC & Chem 7: 04/16/21 05:08 04/17/21 03:47 Labs: Abnormal lab results 04/17/21 Range/Units 03:47 Potassium 3.3 L (3.6-5.0) mmol/L Creatinine 0.6 L (0.8-1.3) mg/dL HEART Score - HEART Score EKG: Normal Age: 45-65 Risk factors: > 3 risk factors or hx of atherosclerotic disease Troponin: Troponin T 0.114 ng/mL (0.00-0.029) H* D 04/16/21 05:08 Troponin: < normal limit
[2021-04-17] MEDS: ASPIRIN EC 325 MG TAB PO SCH (10:59)
[2021-04-17] MEDS: METOPROLOL TARTRATE 50 MG TAB PO SCH ×2 (10:59→21:20)
[2021-04-17] MEDS: CITALOPRAM 20 MG TAB PO SCH (10:59)
[2021-04-17] MEDS: CLOPIDOGREL 75 MG TAB PO SCH (11:00)
[2021-04-17] MEDS: PANTOPRAZOLE 40 MG TAB PO SCH (11:00)
--- NOTE | 2021-04-17 11:24 | Progress Note ---
Assessment and Plan Plan to re-attempt [facility] on Monday AM if pt remains clinically stable. Continue bASA, Plavix, statin, & BB. Pt seen in conjunction with Dr. Bar, who agrees with the assessment and plan of care. - Patient Problems (1) Alcohol withdrawal Current Visit: Yes Status: Acute Qualifiers: Complication of substance-induced condition: with delirium Qualified Code(s): F10.231 - Alcohol dependence with withdrawal delirium (2) Chest pain Current Visit: Yes Status: Acute (3) NSTEMI (non-ST elevated myocardial infarction) Current Visit: Yes Status: Acute (4) CAD (coronary artery disease) Current Visit: Yes Status: Chronic Qualifiers: Coronary Disease-Associated Artery/Lesion type: [place] artery (5) Stented coronary artery Current Visit: Yes Status: Chronic (6) HTN (hypertension) Current Visit: Yes Status: Chronic Qualifiers: Hypertension type: primary hypertension Qualified Code(s): I10 - Essential (primary) hypertension (7) HLD (hyperlipidemia) Current Visit: Yes Status: Chronic Qualifiers: Hyperlipidemia type: mixed hyperlipidemia Qualified Code(s): E78.2 - Mixed hyperlipidemia (8) Nicotine dependence Current Visit: Yes Status: Chronic (9) EtOH dependence Current Visit: Yes Status: Chronic Subjective Date of service: 04/17/21 Principal diagnosis: NSTEMI Interval history: Resting comfortably. Drowsy. No chest pain this AM. Tele reviewed - SR 60s, no events. Objective Last Vital Signs Temp 98.2 F 04/17/21 08:20 Pulse 73 04/17/21 08:20 Resp 20 04/17/21 08:20 BP 140/71 04/17/21 08:20 Pulse Ox 96 04/17/21 08:20 - Physical Examination General: No Apparent Distress HEENT: Positive: EOMI, Normocephaly Neck: Positive: neck supple, trachea midline Cardiac: Positive: Reg Rate and Rhythm, S1/S2 Lungs: Positive: clear to auscultation Neuro: Positive: Grossly Intact Abdomen: Positive: Soft. Negative: Tender Skin: Negative: Rash Musculoskeletal: No Fluid Collection Extremities: Present: lower extr. pulses. Absent: edema - Labs and Meds Comprehensive Metabolic Panel 04/17/21 Range/Units 03:47 Sodium 140 (137-145) mmol/L Potassium 3.3 L (3.6-5.0) mmol/L Chloride 103.4 (98-107) mmol/L Carbon Dioxide 22 (22-30) mmol/L BUN 16 (9-20) mg/dL Creatinine 0.6 L (0.8-1.3) mg/dL Glucose 84 (75-100) mg/dL Calcium 8.9 (8.4-10.2) mg/dL - Imaging and Cardiology EKG: report reviewed, image reviewed Echo: report reviewed (04/13/2021 - normal EF, mild diastolic dysfxn) Cardiac cath: pending - Telemetry EKG Rhythm: Sinus Rhythm - EKG Sinus rhythms and dysrhythmias: sinus tachycardia Repolarization changes or abnormalities: nonspecific abnormality, ST segment, and/or T wave - Allied health notes Allied health notes reviewed: nursing
[2021-04-17] MEDS ORDERED: POTASSIUM CHLORIDE ER 20 MEQ TAB PO ONE ×2 (14:38→17:00)
[2021-04-17] MEDS: ONDANSETRON 4 MG/2 ML INJ IV PRN (15:31)
[2021-04-18 06:21] LABS: Hematocrit 38.1 % (35.5-45.6); Hemoglobin 12.1 gm/dl (11.8-15.2)
[2021-04-18] MEDS: ONDANSETRON 4 MG/2 ML INJ IV PRN (07:25)
[2021-04-18] MEDS: METOPROLOL TARTRATE 50 MG TAB PO SCH ×2 (10:22→22:30)
[2021-04-18] MEDS: ASPIRIN EC 325 MG TAB PO SCH (10:22)
[2021-04-18] MEDS: CLOPIDOGREL 75 MG TAB PO SCH (10:22)
[2021-04-18] MEDS: CITALOPRAM 20 MG TAB PO SCH (10:23)
[2021-04-18] MEDS: PANTOPRAZOLE 40 MG TAB PO SCH (10:23)
--- NOTE | 2021-04-18 13:30 | Progress Note ---
Assessment and Plan Assessment and Plan --Non-ST elevation NV; Current Visit: Yes Status: Acute Left heart cath for tomorrow Echocardiogram ejection fraction EF 50 to 55% --Alcohol withdrawal symptoms: Current Visit: Yes Status: Acute No withdrawal symptoms at this point No agitation Sitting in chair and eating his lunch -- HTN (hypertension) Current Visit: No Status: Acute Blood pressure well controlled --Dyslipidemia; Current Visit: Yes Status: Acute Continue statin, low-cholesterol diet --History of chronic alcohol abuse Current Visit: Yes Status: Acute Counseling done, advised to quit alcohol intake Seek alcohol rehabilitation, alcohol Anonymous support group Monitor for alcohol withdrawal symptoms --Nicotine dependence Current Visit: Yes Status: Acute Patient counseled on quitting tobacco abuse. Smoking cessation, nicotine patch as needed --DVT prophylaxis Current Visit: No Status: Acute Patient placed on subcutaneous heparin. --Full code status Current Visit: Yes Status: Acute Patient is full code. We will closely monitor the patient and adjust the management as needed Cardiology evaluation recommendations noted and appreciated Left heart cath on Monday Disposition per wallpaper printer No restraints Subjective Date of service: 04/18/21 Principal diagnosis: NSTEMI Interval history: 55-year-old male with known history of coronary artery disease status post stent placement in the past, previous cardiac arrest, COPD, history of GI bleed and a strong family history of coronary artery disease presenting with to the emergency room today complaining of mid epigastric pain radiating to the upper chest. Pain is said to be constant and gets worse upon taking a deep breath. She has had associated nausea and vomiting prior to arrival in the emergency room. He denies any headaches, no dizziness or was diaphoretic. He had some tingling sensation in the left upper extremity. He denies any abdominal pain, no diarrhea, no hematuria or dysuria, no fever or chills. Patient denies any sick contacts and no recent travel. Denies any contact with anyone with COVID- 19. Patient admits that he has not been quite compliant with his medications and also has not had the Covid 19 vaccination. Initial work-up in the emergency room today reveals a troponin of less than 0.01 however subsequent troponin levels were elevated at 0.159 and 0.268. EKG showed no acute findings. Chest x-ray showed no acute findings. Activities Director on-call was consulted by the ER physician who indicated that patient will be followed up in the a.m. Nitropaste was recommended. Anticoagulation was not recommended at this time. 04/14/2021 NSTEMI Left heart cath on 04/15/2021 04/15/2021; Patient with non-ST elevation NV, cardiology scheduled for left heart cath However had to cancel due to acute alcohol withdrawal symptoms Patient is on CIWA protocol Closely monitor discharge when stable 04/16/2021 Left heart cath postponed because of persistent agitation. To be rescheduled for a later date Patient calmer during my examination 04/17/2021 Left heart cath postponed to Monday Patient less agitated Continue CIWA protocol 04/18/2021 Left heart cath tomorrow Patient sitting in chair and eating comfortably No chest pain Patient is aware of his diagnosis and his comorbid conditions I wanted to call his family but patient said that he has been talking with his family and they are well-informed Objective - Constitutional Vitals: Vital Signs - 12hr 04/18/21 04/18/21 05:01 10:22 Temperature 98.2 F Pulse Rate 76 89 Respiratory 20 Rate Blood Pressure 142/77 O2 Sat by Pulse 97 Oximetry General appearance: Present: no acute distress, well-nourished - EENT Eyes: PERRL, EOM intact ENT: hearing intact, clear oral mucosa Ears: bilateral: normal - Neck Neck: supple, normal ROM - Respiratory Respiratory effort: normal Respiratory: bilateral: CTA - Breasts Breasts: normal - Cardiovascular Heart rate: 78 Rhythm: regular Heart Sounds: Present: S1 & S2. Absent: gallop, rub Extremities: pulses intact, No edema, normal color, Full ROM - Gastrointestinal General gastrointestinal: Present: soft, non-tender, non-distended, normal bowel sounds - Genitourinary Male genitourinary: normal - Integumentary Integumentary: clear, warm, dry - Musculoskeletal Musculoskeletal: 1, strength equal bilaterally - Neurologic Neurologic: moves all extremities - Psychiatric Psychiatric: memory intact, appropriate mood/affect, intact judgment & insight - Labs CBC & Chem 7: 04/18/21 04:52 04/17/21 03:47 HEART Score - HEART Score EKG: Normal Age: 45-65 Risk factors: > 3 risk factors or hx of atherosclerotic disease Troponin: Troponin T 0.114 ng/mL (0.00-0.029) H* D 04/16/21 05:08 Troponin: < normal limit
[2021-04-18] MEDS ORDERED: SODIUM CHLORIDE 0.9% 500 ML 500 ML IV SCH (14:00)
[2021-04-18] MEDS ORDERED: POTASSIUM CHLORIDE ER 20 MEQ TAB PO ONE (14:06)
--- NOTE | 2021-04-18 15:39 | Progress Note ---
Assessment and Plan Plan for [facility] in AM. NPO after midnight. Continue bASA, Plavix, statin, & BB. Pt seen in conjunction with Dr. Bar, who agrees with the assessment and plan of care. - Patient Problems (1) Alcohol withdrawal Current Visit: Yes Status: Acute Qualifiers: Complication of substance-induced condition: with delirium Qualified Code(s): F10.231 - Alcohol dependence with withdrawal delirium (2) Chest pain Current Visit: Yes Status: Acute (3) NSTEMI (non-ST elevated myocardial infarction) Current Visit: Yes Status: Acute (4) CAD (coronary artery disease) Current Visit: Yes Status: Chronic Qualifiers: Coronary Disease-Associated Artery/Lesion type: [place] artery (5) Stented coronary artery Current Visit: Yes Status: Chronic (6) HTN (hypertension) Current Visit: Yes Status: Chronic Qualifiers: Hypertension type: primary hypertension Qualified Code(s): I10 - Essential (primary) hypertension (7) HLD (hyperlipidemia) Current Visit: Yes Status: Chronic Qualifiers: Hyperlipidemia type: mixed hyperlipidemia Qualified Code(s): E78.2 - Mixed hyperlipidemia (8) Nicotine dependence Current Visit: Yes Status: Chronic (9) EtOH dependence Current Visit: Yes Status: Chronic Subjective Date of service: 04/18/21 Principal diagnosis: NSTEMI Interval history: Resting comfortably. No chest pain this AM. Tele reviewed - SR 60-70s, no events. Objective Last Vital Signs Temp 98.9 F 04/18/21 11:13 Pulse 63 04/18/21 11:13 Resp 20 04/18/21 11:13 BP 111/70 04/18/21 11:13 Pulse Ox 96 04/18/21 11:13 - Physical Examination General: No Apparent Distress HEENT: Positive: EOMI, Normocephaly Neck: Positive: neck supple, trachea midline Cardiac: Positive: Reg Rate and Rhythm, S1/S2 Lungs: Positive: clear to auscultation Neuro: Positive: Grossly Intact Abdomen: Positive: Soft. Negative: Tender Skin: Negative: Rash Musculoskeletal: No Fluid Collection Extremities: Present: lower extr. pulses. Absent: edema - Labs and Meds CBC 04/18/21 Range/Units 04:52 Hgb 12.1 (11.8-15.2) gm/dl Hct 38.1 (35.5-45.6) % Plt Count 211 (140-440) K/mm3 - Imaging and Cardiology EKG: report reviewed, image reviewed Echo: report reviewed (04/13/2021 - normal EF, mild diastolic dysfxn) Cardiac cath: pending - Telemetry EKG Rhythm: Sinus Rhythm - EKG Sinus rhythms and dysrhythmias: sinus tachycardia Repolarization changes or abnormalities: nonspecific abnormality, ST segment, and/or T wave
[2021-04-18 17:25] LABS: Blood Urea Nitrogen 16 mg/dL (9-20); Calcium 9.2 mg/dL (8.4-10.2); Hemolysis Index 3
--- NOTE | 2021-04-18 17:26 | Electrocardiograph Report ---
[facility] Test Date: 2021-04-18 Test Time: 09:54:42 Pat Name: BRITTON ARVIZU Department: Room: A454 1 Gender: M Pet Stylist: FADY : 1965 Requested By: CLAYTON GUTIERREZ Order Number: [id number] Reading MD: Josefina Gore Measurements Intervals [place] Rate: 74 P: 89 AK: 177 QRS: 59 QRSD: 73 T: 63 QT: 391 QTc: 436 Interpretive Statements Sinus arrhythmia Compared to ECG 04/15/2021 11:36:40 No significant changes Electronically Signed On 04-18-2021 17:26:21 EDT by Josefina Gore
[2021-04-18 17:27] LABS: BUN/Creatinine Ratio 23
[2021-04-19] MEDS: ONDANSETRON 4 MG/2 ML INJ IV PRN (05:09)
[2021-04-19] MEDS ORDERED: SODIUM CHLORIDE 0.9% 500 ML 500 ML ONE (08:05)
[2021-04-19] MEDS: CLOPIDOGREL 75 MG TAB PO SCH ×2 (08:10→10:37)
[2021-04-19] MEDS: ASPIRIN EC 325 MG TAB PO SCH ×2 (08:10→10:37)
[2021-04-19 08:37] LABS: Basophils # (Auto) 0.1 K/mm3 (0.0-0.1); Basophils % (Auto) 0.6 % (0.0-1.8); Eosinophils # (Auto) 0.2 K/mm3 (0.0-0.4); Eosinophils % (Auto) 2.6 % (0.0-4.3); Hematocrit 38.3 % (35.5-45.6); Hemoglobin 12.4 gm/dl (11.8-15.2); Lymphocytes # (Auto) 1.5 K/mm3 (1.2-5.4); Mean Corpuscular HGB Conc 32 % (32-34); Mean Corpuscular Volume 83 fl (84-94); Monocytes # (Auto) 1.2 K/mm3 (0.0-0.8); Monocytes % (Auto) 13.5 % (0.0-7.3); Platelet Count 188 K/mm3 (140-440); Red Blood Count 4.65 M/mm3 (3.65-5.03)
[2021-04-19 08:38] LABS: BUN/Creatinine Ratio 32; Blood Urea Nitrogen 16 mg/dL (9-20); Calcium 9.9 mg/dL (8.4-10.2); Hemolysis Index 1
[2021-04-19 08:47] LABS: INR 1.19 (0.87-1.13)
[2021-04-19 09:00] LABS: Red Cell Distribution Width 20.3 % (13.2-15.2)
[2021-04-19] MEDS ORDERED: HEPARIN/NS 5000 UNIT/500ML 1,000 ML IR ONE (09:25)
[2021-04-19] MEDS: fentaNYL 100 MCG/2 ML INJ ONE ×2 (09:47→09:58)
[2021-04-19] MEDS: MIDAZOLAM 2 MG/2 ML INJ ONE ×2 (09:47→09:58)
[2021-04-19] MEDS: LIDOCAINE (2%) 20 MG/1 ML VIAL 20 ML MDV INFILTRATI ONE ×2 (09:49→10:02)
[2021-04-19] MEDS: HEPARIN 10,000 UNITS/10 ML VIAL ONE ×3 (09:50→10:08)
[2021-04-19] MEDS: VERAPAMIL 5 MG/2 ML INJ ONE ×2 (09:51→20:36)
[2021-04-19] MEDS: NITROGLYCERIN SYRINGE 3 ML ONE ×2 (09:53→10:04)
[2021-04-19] MEDS ORDERED: HEPARIN/NS 5000 UNIT/500ML 500 ML IR ONE (10:25)
[2021-04-19] MEDS: CITALOPRAM 20 MG TAB PO SCH (10:37)
[2021-04-19] MEDS: METOPROLOL TARTRATE 50 MG TAB PO SCH ×2 (10:37→22:01)
[2021-04-19] MEDS: PANTOPRAZOLE 40 MG TAB PO SCH (10:38)
[2021-04-19] MEDS ORDERED: TICAGRELOR 90 MG TAB ONE (10:38)
[2021-04-19] MEDS ORDERED: ALUM-MAG HYDROXIDE-SIMETHICONE 200-200-20MG/5ML ORAL LIQD 30 ML ONE (10:39)
--- NOTE | 2021-04-19 10:49 | Discharge Summary ---
Providers - Providers Date of Admission: 04/14/21 11:00 Date of discharge: 04/19/21 Attending physician: WILL FLOWERS 04/13/21 Consult to Cardiac Rehabilitation [CONS] Routine Reason For Exam: Phase I 04/13/21 21:50 Consult to Cardiology [CONS] Routine Consulting Provider: LAURA FLAHERTY Reason For Exam: chest pain Primary care physician: DIAGNOSTIC TECHNOLOGIST Hospitalization Condition: Stable Core Measure Documentation - Palliative Care Palliative Care/ Comfort Measures: Not Applicable - Core Measures Any of the following diagnoses?: none Exam - Constitutional Vitals: Temp Pulse Resp BP Pulse Ox 98.3 F 59 L 20 125/69 99 04/19/21 04:56 04/19/21 04:56 04/19/21 04:56 04/19/21 04:56 04/19/21 04:56 General appearance: Present: no acute distress, well-nourished - EENT Eyes: Present: PERRL ENT: hearing intact, clear oral mucosa - Neck Neck: Present: supple, normal ROM - Respiratory Respiratory effort: normal Respiratory: bilateral: CTA - Cardiovascular Heart Sounds: Present: S1 & S2. Absent: rub, click - Extremities Extremities: pulses symmetrical, No edema Peripheral Pulses: within normal limits - Abdominal General gastrointestinal: Present: soft, non-tender, non-distended, normal bowel sounds Male genitourinary: Present: normal - Integumentary Integumentary: Present: clear, warm, dry - Musculoskeletal Musculoskeletal: gait normal, strength equal bilaterally - Psychiatric Psychiatric: appropriate mood/affect, intact judgment & insight - Neurologic Neurologic: CNII-XII intact, moves all extremities Plan Activity: no restrictions Diet: low fat, low cholesterol, low salt Follow up with: CHLOE MARIE MD [Primary Care Provider] - 7 Days VOLODYMYR GAN MD [Staff Physician] - 7 Days
--- NOTE | 2021-04-19 10:54 | Progress Note ---
Assessment and Plan Plan for staged PCI of RCA in AM. NPO after midnight. Will change Plavix to Brilinta. D/w pt at bedside. Continue DAPT (bASA & Brilinta), statin, and beta bryan. Smoking cessation and reduction of EtOH intake strongly encouraged. Pt verbalized understanding. Pt seen in conjunction with Dr. Vijaya Field, who agrees with the assessment and plan of care. - Patient Problems (1) Chest pain Current Visit: Yes Status: Acute (2) NSTEMI (non-ST elevated myocardial infarction) Current Visit: Yes Status: Acute (3) CAD (coronary artery disease) Current Visit: Yes Status: Chronic Qualifiers: Coronary Disease-Associated Artery/Lesion type: [place] artery (4) Stented coronary artery Current Visit: Yes Status: Chronic (5) HTN (hypertension) Current Visit: Yes Status: Chronic Qualifiers: Hypertension type: primary hypertension Qualified Code(s): I10 - Essential (primary) hypertension (6) HLD (hyperlipidemia) Current Visit: Yes Status: Chronic Qualifiers: Hyperlipidemia type: mixed hyperlipidemia Qualified Code(s): E78.2 - Mixed hyperlipidemia (7) Nicotine dependence Current Visit: Yes Status: Chronic Qualifiers: Nicotine product type: cigarettes (8) EtOH dependence Current Visit: Yes Status: Chronic (9) Alcohol withdrawal Current Visit: Yes Status: Resolved Qualifiers: Complication of substance-induced condition: with delirium Qualified Code(s): F10.231 - Alcohol dependence with withdrawal delirium Subjective Date of service: 04/19/21 Principal diagnosis: NSTEMI Interval history: S/p C this AM, which revealed severe 2-vessel disease with culprit mid LCx (s/p PCI w/TOÑO) and 89% in-stent restenosis of prox/mid RCA (awaiting staged PCI). Pt tolerated procedure well. Currently chest pain-free. SR 60s on tele, no events. Objective Last Vital Signs Temp 98.6 F 04/19/21 12:05 Pulse 62 04/19/21 12:05 Resp 18 04/19/21 12:05 BP 135/71 04/19/21 12:05 Pulse Ox 96 04/19/21 12:05 - Physical Examination General: No Apparent Distress HEENT: Positive: EOMI, Normocephaly Neck: Positive: neck supple, trachea midline Cardiac: Positive: Reg Rate and Rhythm, S1/S2 Lungs: Positive: clear to auscultation Neuro: Positive: Grossly Intact Abdomen: Positive: Soft. Negative: Tender Skin: Negative: Rash Incision: Cardiac Cath Site (R radial - clean/dry/intact, no evidence of bleeding or hematoma) Musculoskeletal: No Fluid Collection Extremities: Present: lower extr. pulses. Absent: edema - Labs and Meds Coagulation 04/19/21 Range/Units 08:12 PT 15.6 H (12.2-14.9) Sec. INR 1.19 H (0.87-1.13) CBC 04/19/21 Range/Units 08:12 WBC 8.6 (4.5-11.0) K/mm3 RBC 4.65 (3.65-5.03) M/mm3 Hgb 12.4 (11.8-15.2) gm/dl Hct 38.3 (35.5-45.6) % Plt Count 188 (140-440) K/mm3 Lymph # (Auto) 1.5 (1.2-5.4) K/mm3 [place] # (Auto) 1.2 H (0.0-0.8) K/mm3 Eos # (Auto) 0.2 (0.0-0.4) K/mm3 Baso # (Auto) 0.1 (0.0-0.1) K/mm3 Comprehensive Metabolic Panel 04/18/21 04/19/21 Range/Units 16:52 08:12 Sodium 139 139 (137-145) mmol/L Potassium 3.9 4.3 (3.6-5.0) mmol/L Chloride 104.6 102.8 (98-107) mmol/L Carbon Dioxide 22 25 (22-30) mmol/L BUN 16 16 (9-20) mg/dL Creatinine 0.7 L 0.5 L (0.8-1.3) mg/dL Glucose 120 H 119 H (75-100) mg/dL Calcium 9.2 9.9 (8.4-10.2) mg/dL - Imaging and Cardiology EKG: report reviewed, image reviewed Echo: report reviewed (04/13/2021 - normal EF, mild diastolic dysfxn) Cardiac cath: pending - Telemetry EKG Rhythm: Sinus Rhythm - EKG Sinus rhythms and dysrhythmias: sinus tachycardia Repolarization changes or abnormalities: nonspecific abnormality, ST segment, and/or T wave - Allied health notes Allied health notes reviewed: nursing
[2021-04-19] MEDS ORDERED: SODIUM CHLORIDE 0.9% 500 ML 500 ML IV SCH (11:00)
--- NOTE | 2021-04-19 11:12 | Cardiac Catherization Report ---
DATE OF PROCEDURE: 04/19/2021 CARDIAC CATHETERIZATION REFERRING PHYSICIAN: Dr. Nix. INDICATIONS FOR PROCEDURE: The patient is a pleasant 55-year-old gentleman, history of PCI and cardiac arrest in 2004. Recent history of tobacco and alcohol abuse, presents with chest pain and findings consistent with non-ST elevation myocardial infarction, referred for left heart catheterization. Risks, benefits, and potential alternatives were explained at length prior to obtaining informed consent. PROCEDURE IN DETAIL: The patient was brought to the labor delivery specialist in a postabsorptive state, prepped and draped in sterile fashion. Rico's test of the right hand is normal. 2 mL of 2% lidocaine used to anesthetize the right wrist. A standard a 6 [place] hydrophilic sheath used to cannulate the right radial artery via modified Seldinger technique. All exchanges performed to exchange J-tip guidewire. JL3.5 catheter was used to engage the left main. No dampening or ventricularization. Cineangiography performed in all projections. JR4 catheter used to cross the aortic valve under fluoroscopic guidance. Left ventriculography performed left heart was performed in 30 GAR[place] and 30 CHIN[place] projections via hand injections, catheter flushed. Manual pullback performed with continuous pressure monitoring. Catheter used to engage the right coronary. No dampening or ventricularization. Cineangiography performed in all projections. DATA: Aortic pressure is 140/70, LV pressure is 140, LVEDP of 10 mmHg. The patient remained in normal sinus rhythm throughout the procedure. Left ventriculography reveals normal systolic performance with estimated ejection fraction of 55-60%. No evidence of aortic stenosis. Coronary anatomy, this is a right dominant system. Right coronary is a moderate sized vessel, courses AV groove, distally bifurcates in the in the posterior and posterolateral branch. There is a stent in the right coronary in the mid segment with 80-90% in-stent restenosis. JAMES 3 flow. Left main without significant disease, bifurcates in left anterior descending and left circumflex. LAD is a moderate sized vessel, courses anterior intergroove, wraps around the apex. Scattered luminal irregularities, but no significant disease. Left circumflex with an ulcerated culprit 99% stenosis, which is complex and long. This is the culprit lesion. JAMES 3, 2 flow. We decided to proceed with PCI. Heparin given. Abnormal ACT confirmed. EBU 3.5 guide used to engage the left main without difficulty. A ChoICE PT floppy wire was used to cross the lesion without difficulty. We used a 2.0 x 20 [place] balloon to predilate the lesion. A 2.75 x 26 Resolute [place] used at 12 CANDELARIO for 30 seconds. Excellent final angiographic result, JAMES 3 flow. Intravascular ultrasound was performed, multiple passes of a IVUS is made, reveals a well apposed, well expanded stent, no dissection. Left main and proximal left circumflex are free of significant disease. At this point, the patient is clinically stable, chest pain free, doing well. The residual stenosis is 0%, JAMES 3 flow. I directly supervised the administration of moderate sedation with fentanyl and Versed from 9:58 a.m. to 10:40 a.m. No immediate complications identified. CONCLUSION: 1. Severe 2-vessel coronary disease with culprit mid left circumflex, status post successful IVUS-guided PCI with placement of drug-eluting stent (Resolute 2.75 x 26 [place]). a. 89% in-stent restenosis of proximal/mid right coronary with JAMES 3 flow. 2. Preserved left ventricular systolic performance, estimated ejection fraction of 55-60%. 3. No evidence of aortic stenosis. PLAN: Clinically stable. Given presentation with bwa-RE-ssyumgaob myocardial infarction, we will stage PCI of right coronary until tomorrow. The patient is currently chest pain free with no EKG changes. Brilinta, aspirin, and statin therapy. Standard radial care. Results of procedure and films were reviewed with the patient at length. All questions were addressed. TID: [id number] RECEIPT: [id number] [facility]
[2021-04-19] MEDS ORDERED: HYDROcodone/ACETAMINOPHEN 5-325 MG TAB PO PRN (11:30)
[2021-04-19] MEDS ORDERED: traMADol 50 MG TAB PO PRN (12:00)
[2021-04-19] MEDS: TICAGRELOR 90 MG TAB PO SCH (22:02)
[2021-04-20 04:47] LABS: INR 1.21 (0.87-1.13)
[2021-04-20 04:50] LABS: Hematocrit 36.3 % (35.5-45.6); Hemoglobin 11.8 gm/dl (11.8-15.2); Mean Corpuscular HGB Conc 33 % (32-34); Mean Corpuscular Volume 82 fl (84-94); Platelet Count 174 K/mm3 (140-440); Red Blood Count 4.42 M/mm3 (3.65-5.03); Red Cell Distribution Width 19.6 % (13.2-15.2)
[2021-04-20 04:56] LABS: Blood Urea Nitrogen 16 mg/dL (9-20); Calcium 8.9 mg/dL (8.4-10.2); Hemolysis Index 6
[2021-04-20 04:57] LABS: BUN/Creatinine Ratio 32
--- NOTE | 2021-04-20 07:28 | Progress Note ---
Assessment and Plan Assessment and Plan --Non-ST elevation NH; Current Visit: Yes Status: Acute Patient had left heart cath this a.m. Had one stent Repeat left heart cath tomorrow for staged procedure and stent placement Patient started on Brilinta in place of Plavix DAPT to continue --Alcohol withdrawal symptoms: Current Visit: Yes Status: Acute No withdrawal symptoms at this point No agitation Sitting in chair and eating his lunch -- HTN (hypertension) Current Visit: No Status: Acute Blood pressure well controlled --Dyslipidemia; Current Visit: Yes Status: Acute Continue statin, low-cholesterol diet --History of chronic alcohol abuse Current Visit: Yes Status: Acute Counseling done, advised to quit alcohol intake Seek alcohol rehabilitation, alcohol Anonymous support group Monitor for alcohol withdrawal symptoms --Nicotine dependence Current Visit: Yes Status: Acute Patient counseled on quitting tobacco abuse. Smoking cessation, nicotine patch as needed --DVT prophylaxis Current Visit: No Status: Acute Patient placed on subcutaneous heparin. --Full code status Current Visit: Yes Status: Acute Patient is full code. We will closely monitor the patient and adjust the management as needed Cardiology evaluation recommendations noted and appreciated Left heart cath on Monday Disposition per environmental engineering manager No restraints Subjective Date of service: 04/19/21 Principal diagnosis: NSTEMI Interval history: 55-year-old male with known history of coronary artery disease status post stent placement in the past, previous cardiac arrest, COPD, history of GI bleed and a strong family history of coronary artery disease presenting with to the em ergency room today complaining of mid epigastric pain radiating to the upper chest. Pain is said to be constant and gets worse upon taking a deep breath. She has had associated nausea and vomiting prior to arrival in the emergency room. He denies any headaches, no dizziness or was diaphoretic. He had some tingling sensation in the left upper extremity. He denies any abdominal pain, no diarrhea, no hematuria or dysuria, no fever or chills. Patient denies any sick contacts and no recent travel. Denies any contact with anyone with COVID- 19. Patient admits that he has not been quite compliant with his medications and also has not had the Covid 19 vaccination. Initial work-up in the emergency room today reveals a troponin of less than 0.01 however subsequent troponin levels were elevated at 0.159 and 0.268. EKG showed no acute findings. Chest x-ray showed no acute findings. [employer] on-call was consulted by the ER physician who indicated that patient will be followed up in the a.m. Nitropaste was recommended. Anticoagulation was not recommended at this time. 04/14/2021 NSTEMI Left heart cath on 04/15/2021 04/15/2021; Patient with non-ST elevation NH, cardiology scheduled for left heart cath However had to cancel due to acute alcohol withdrawal symptoms Patient is on CIWA protocol Closely monitor discharge when stable 04/16/2021 Left heart cath postponed because of persistent agitation. To be rescheduled for a later date Patient calmer during my examination 04/17/2021 Left heart cath postponed to Monday Patient less agitated Continue CIWA protocol 04/18/2021 Left heart cath tomorrow Patient sitting in chair and eating comfortably No chest pain Patient is aware of his diagnosis and his comorbid conditions I wanted to call his family but patient said that he has been talking with his family and they are well-informed 04/19/2021 S/p LHC this AM, which revealed severe 2-vessel disease with culprit mid LCx (s/p PCI w/TOÑO) and 89% in-stent restenosis of prox/mid RCA (awaiting staged PCI). Pt tolerated procedure well. Currently chest pain-free. SR 60s on tele, no events. Plan for staged PCI of RCA in AM. NPO after midnight. Changed Plavix to Brilinta. By cardiology Continue DAPT (bASA & Brilinta), statin, and beta bryan. Smoking cessation and reduction of EtOH intake strongly encouraged. Pt verbalized understanding. Objective - Constitutional Vitals: Vital Signs - 12hr 04/19/21 04/19/21 04/19/21 19:45 22:00 22:01 Temperature 98.6 F Pulse Rate 90 90 Respiratory 20 Rate Blood Pressure 143/84 143/84 Blood Pressure [Right] O2 Sat by Pulse 97 99 Oximetry 04/19/21 04/20/21 04/20/21 22:17 00:08 04:59 Temperature 98.7 F 98.1 F Pulse Rate 86 64 69 Respiratory 18 18 Rate Blood Pressure 114/61 Blood Pressure 138/62 [Right] O2 Sat by Pulse 98 98 Oximetry General appearance: Present: no acute distress, well-nourished - EENT Eyes: PERRL, EOM intact ENT: hearing intact, clear oral mucosa Ears: bilateral: normal - Neck Neck: supple, normal ROM - Respiratory Respiratory effort: normal Respiratory: bilateral: CTA - Breasts Breasts: normal - Cardiovascular Heart rate: 78 Rhythm: regular Heart Sounds: Present: S1 & S2. Absent: gallop, rub Extremities: pulses intact, No edema, normal color, Full ROM - Gastrointestinal General gastrointestinal: Present: soft, non-tender, non-distended, normal bowel sounds - Genitourinary Male genitourinary: normal - Integumentary Integumentary: clear, warm, dry - Musculoskeletal Musculoskeletal: 1, strength equal bilaterally - Neurologic Neurologic: moves all extremities - Psychiatric Psychiatric: memory intact, appropriate mood/affect, intact judgment & insight - Labs CBC & Chem 7: 04/20/21 03:20 04/20/21 03:20 Labs: Abnormal lab results 04/19/21 04/19/21 04/19/21 Range/Units 08:12 08:12 08:12 MCV 83 L (84-94) fl MCH 27 L (28-32) pg RDW 20.3 H (13.2-15.2) % [place] % (Auto) 13.5 H (0.0-7.3) % [place] # (Auto) 1.2 H (0.0-0.8) K/mm3 PT 15.6 H (12.2-14.9) Sec. INR 1.19 H (0.87-1.13) Potassium (3.6-5.0) mmol/L Carbon Dioxide (22-30) mmol/L Creatinine 0.5 L (0.8-1.3) mg/dL Glucose 119 H (75-100) mg/dL POC Glucose (70-105) mg/dL 04/19/21 04/20/21 04/20/21 Range/Units 21:31 03:20 03:20 MCV 82 L (84-94) fl MCH 27 L (28-32) pg RDW 19.6 H (13.2-15.2) % [place] % (Auto) (0.0-7.3) % [place] # (Auto) (0.0-0.8) K/mm3 PT 15.8 H (12.2-14.9) Sec. INR 1.21 H (0.87-1.13) Potassium (3.6-5.0) mmol/L Carbon Dioxide (22-30) mmol/L Creatinine (0.8-1.3) mg/dL Glucose (75-100) mg/dL POC Glucose 134 H (70-105) mg/dL 04/20/21 04/20/21 Range/Units 03:20 04:50 MCV (84-94) fl MCH (28-32) pg RDW (13.2-15.2) % [place] % (Auto) (0.0-7.3) % [place] # (Auto) (0.0-0.8) K/mm3 PT (12.2-14.9) Sec. INR (0.87-1.13) Potassium 3.5 L (3.6-5.0) mmol/L Carbon Dioxide 20 L (22-30) mmol/L Creatinine 0.5 L (0.8-1.3) mg/dL Glucose 115 H (75-100) mg/dL POC Glucose 135 H (70-105) mg/dL HEART Score - HEART Score EKG: Normal Age: 45-65 Risk factors: > 3 risk factors or hx of atherosclerotic disease Troponin: Troponin T 0.114 ng/mL (0.00-0.029) H* D 04/16/21 05:08 Troponin: < normal limit
[2021-04-20] MEDS ORDERED: ASPIRIN 81 MG TAB CHEW ONE (07:34)
[2021-04-20] MEDS ORDERED: HEPARIN 10,000 UNITS/10 ML VIAL ONE (07:37)
[2021-04-20] MEDS ORDERED: TICAGRELOR 90 MG TAB ONE (07:37)
[2021-04-20] MEDS ORDERED: HEPARIN/NS 5000 UNIT/500ML 1,000 ML IR ONE (07:37)
[2021-04-20] MEDS ORDERED: NITROGLYCERIN SYRINGE 0 ML ONE (07:38)
[2021-04-20] MEDS ORDERED: SODIUM CHLORIDE 0.9% 500 ML 500 ML ONE (07:38)
[2021-04-20] MEDS: ASPIRIN 81 MG TAB CHEW PO SCH (07:45)
[2021-04-20] MEDS: TICAGRELOR 90 MG TAB PO SCH ×2 (07:45→21:01)
[2021-04-20] MEDS: fentaNYL 100 MCG/2 ML INJ ONE ×3 (08:00→08:22)
[2021-04-20] MEDS: MIDAZOLAM 2 MG/2 ML INJ ONE ×3 (08:01→08:22)
[2021-04-20] MEDS: LIDOCAINE (2%) 20 MG/1 ML VIAL 20 ML MDV INFILTRATI ONE ×2 (08:01→08:19)
[2021-04-20] MEDS: VERAPAMIL 5 MG/2 ML INJ ONE ×2 (08:01→08:23)
[2021-04-20] MEDS: HEPARIN 10,000 UNITS/10 ML VIAL ONE ×2 (08:02→08:23)
[2021-04-20] MEDS ORDERED: ATROPINE 0.1% (1 MG/10 ML) CARDIAC SYRINGE ONE (08:06)
--- NOTE | 2021-04-20 10:10 | Cardiac Catherization Report ---
DATE OF SERVICE: 04/20/2021 CORONARY INTERVENTION REPORT INDICATION: The patient is a 55-year-old white gentleman with history of coronary intervention done many years ago in the RCA, presented with a non-STEMI and subsequently underwent PCI of the circumflex artery yesterday. The patient is scheduled for staged PCI of the RCA today. This is in-stent restenosis. There is 80% stenosis in the proximal part with diffuse in-stent restenosis. The patient is aware of the procedure, potential complications, and alternatives of therapy available. DESCRIPTION OF PROCEDURE: The patient was brought to the catheterization laboratory in fasting condition. The patient was prepared in standard fashion, was evaluated for moderate sedation and was felt to be an appropriate candidate for moderate sedation and received IV Versed and fentanyl. Subsequently, local anesthesia was given in the right wrist area and a right radial artery puncture was made using 21-gauge arterial puncture needle. A 5-[place] Slender sheath was introduced. The patient received 3000 units of heparin when radial access was obtained and subsequently, received 7000 units of heparin. Initially, a JR4 guiding catheter was attempted; however, it is selectively engaging the conus branch. Hence, it was changed to AR1 guiding catheter. Angiogram showed the above-mentioned findings namely diffuse in-stent restenosis with an 80% stenosis in the proximal part of the severe most part. Subsequently, 0.014 inch [place] guidewire was advanced into distal RCA without difficulty. Lesion was dilated with 3.0 x 20 mm Emerge balloon multiple times up to 16 atmospheres. Good result was obtained. Resolute 3.0 x 34 mm [place] stent was advanced and deployed covering the entire proximal and mid RCA starting proximal to the previous stent and also involving the distal nonstented area. The lesion was dilated to 14 atmospheres with very good result. Subsequently, we tried to advance NC balloon; however, could not advance NC balloon. Hence, entire stent was inflated with 3.50 x 20 mm regular balloon up to 16 atmospheres with very good result. No significant residual stenosis noted. JAMES 3 flow was noted pre and post-procedure. No complications of dissection, embolization or perforation noted. The patient tolerated the procedure without any hemodynamic changes and EKG changes except for mild ST elevations during balloon inflation. The patient was monitored throughout the procedure with pulse oximetry and hemodynamic monitoring and EKG monitoring. At the end of the procedure, the patient is breathing normally, communicating normally with no focal deficits. The patient's moderate sedation started at 8:09 a.m. and ended at 9:05 a.m. The patient's ACT was found to be more than 300 seconds at the end of the procedure. Radial band applied for hemostasis,Radial band will be removed in the next few hours. Findings were explained to the patient. The patient will be monitored overnight. The patient received a loading dose of Brilinta yesterday and also received 90 mg of Brilinta this morning. FINAL IMPRESSION: Uncomplicated drug-eluting stent placement of the proximal and mid RCA for in-stent restenosis. Procedure was uncomplicated. He will be continued on aspirin and Brilinta for 1 year if no bleeding complications occur. The patient is aware of the importance of continued dual antiplatelet treatment. TID: [id number] RECEIPT: [id number] [facility]
[2021-04-20] MEDS: CITALOPRAM 20 MG TAB PO SCH (10:18)
[2021-04-20] MEDS: METOPROLOL TARTRATE 50 MG TAB PO SCH ×2 (10:18→21:02)
[2021-04-20] MEDS: PANTOPRAZOLE 40 MG TAB PO SCH (10:18)
--- NOTE | 2021-04-20 10:22 | Electrocardiograph Report ---
[facility] Test Date: 2021-04-20 Test Time: 07:00:35 Pat Name: BRITTON ARVIZU Department: Room: A454 1 Gender: M Brain Picker: MIYA : [phone] Requested By: CLAYTON GUTIERREZ Order Number: [id number] Reading MD: Mathieu Nix Measurements Intervals [place] Rate: 61 P: 77 IA: 169 QRS: 69 QRSD: 95 T: 85 QT: 425 QTc: 428 Interpretive Statements Sinus rhythm Compared to ECG 04/18/2021 09:54:42 Sinus arrhythmia no longer present Electronically Signed On 04-20-2021 10:22:20 EDT by Mathieu Nix
--- NOTE | 2021-04-20 10:46 | Progress Note ---
Assessment and Plan Assessment and plan: --Non-ST elevation NC; Current Visit: Yes Status: Acute Patient had left heart cath this a.m. Had one stent Repeat left heart cath staged procedure and stent placement 04/20/21 Patient started on Brilinta in place of Plavix, dual anti-platelet therapy s/p Staged PCI today stent TOÑO mid RCA[for stent restenosis] --Alcohol withdrawal symptoms: Current Visit: Yes Status: Acute No withdrawal symptoms at this point No agitation Sitting in chair and eating his lunch -- HTN (hypertension) Current Visit: No Status: Acute Blood pressure well controlled --Dyslipidemia; Current Visit: Yes Status: Acute Continue statin, low-cholesterol diet --History of chronic alcohol abuse Current Visit: Yes Status: Acute Counseling done, advised to quit alcohol intake Seek alcohol rehabilitation, alcohol Anonymous support group Monitor for alcohol withdrawal symptoms --Nicotine dependence Current Visit: Yes Status: Acute Patient counseled on quitting tobacco abuse. Smoking cessation, nicotine patch as needed --DVT prophylaxis Current Visit: No Status: Acute Patient placed on subcutaneous heparin. --Full code status Current Visit: Yes Status: Acute Patient is full code. We will closely monitor the patient and adjust the management as needed Cardiology following Possible discharge tomorrow if cleared by cardiology patient is stable Plan of care reviewed with the patient his nurse I also discussed with case management Brief history and hospital course: 55-year-old male with known history of coronary artery disease status post stent placement in the past, previous cardiac arrest, COPD, history of GI bleed and a strong family history of coronary artery disease presenting with to the emergency room today complaining of mid epigastric pain radiating to the upper chest. Pain is said to be constant and gets worse upon taking a deep breath. She has had associated nausea and vomiting prior to arrival in the emergency room. He denies any headaches, no dizziness or was diaphoretic. He had some tingling sensation in the left upper extremity. He denies any abdominal pain, no diarrhea, no hematuria or dysuria, no fever or chills. Patient denies any sick contacts and no recent travel. Denies any contact with anyone with COVID- 19. Patient admits that he has not been quite compliant with his medications and also has not had the Covid 19 vaccination. Initial work-up in the emergency room today reveals a troponin of less than 0.01 however subsequent troponin levels were elevated at 0.159 and 0.268. EKG showed no acute findings. Chest x-ray showed no acute findings. Sponge Clipper on-call was consulted by the ER physician who indicated that patient will be followed up in the a.m. Nitropaste was recommended. Anticoagulation was not recommended at this time. 04/14/2021 NSTEMI Left heart cath on 04/15/2021 04/15/2021; Patient with non-ST elevation NC, cardiology scheduled for left heart cath However had to cancel due to acute alcohol withdrawal symptoms Patient is on CIWA protocol Closely monitor discharge when stable 04/16/2021 Left heart cath postponed because of persistent agitation. To be rescheduled for a later date Patient calmer during my examination 04/17/2021 Left heart cath postponed to Monday Patient less agitated Continue CIWA protocol 04/18/2021 Left heart cath tomorrow Patient sitting in chair and eating comfortably No chest pain Patient is aware of his diagnosis and his comorbid conditions I wanted to call his family but patient said that he has been talking with his family and they are well-informed 04/19/2021 S/p LHC this AM, which revealed severe 2-vessel disease with culprit mid LCx (s/p PCI w/TOÑO) and 89% in-stent restenosis of prox/mid RCA (awaiting staged PCI). Pt tolerated procedure well. Currently chest pain-free. SR 60s on tele, no events. Plan for staged PCI of RCA in AM. NPO after midnight. Changed Plavix to Brilinta. By cardiology Continue DAPT (bASA & Brilinta), statin, and beta bryan. Smoking cessation and reduction of EtOH intake strongly encouraged. Pt verbalized understanding. 04/20/2021; Staged PCI today stent TOÑO mid RCA[for stent restenosis] Possible discharge tomorrow if patient is stable and cleared by cardiology History Interval history: Seen and examined the patient at the bedside Patient's chart and medications reviewed Patient underwent heart cath status post PCI today Patient has no new complaints Vital signs noted Hospitalist Physical - Constitutional Vitals: Temp Pulse Resp BP Pulse Ox 98.1 F 69 18 138/62 98 04/20/21 04:59 04/20/21 04:59 04/20/21 04:59 04/20/21 04:59 04/20/21 04:59 General appearance: Present: no acute distress, well-nourished - EENT Eyes: Present: PERRL, EOM intact - Neck Neck: Present: supple, normal ROM - Respiratory Respiratory effort: normal Respiratory: bilateral: diminished, negative: rales, rhonchi, wheezing - Cardiovascular Rhythm: regular Heart Sounds: Present: S1 & S2 - Extremities Extremities: no ischemia, No edema - Abdominal General gastrointestinal: soft, non-tender, non-distended, normal bowel sounds - Integumentary Integumentary: Present: clear, warm - Psychiatric Psychiatric: appropriate mood/affect, cooperative - Neurologic Neurologic: CNII-XII intact, moves all extremities HEART Score - HEART Score EKG: Normal Age: 45-65 Risk factors: > 3 risk factors or hx of atherosclerotic disease Troponin: Troponin T 0.114 ng/mL (0.00-0.029) H* D 04/16/21 05:08 Troponin: < normal limit Results - Labs CBC & Chem 7: 04/20/21 03:20 04/21/21 05:14 Labs: Laboratory Last Values WBC 6.3 K/mm3 (4.5-11.0) 04/20/21 03:20 RBC 4.42 M/mm3 (3.65-5.03) 04/20/21 03:20 Hgb 11.8 gm/dl (11.8-15.2) 04/20/21 03:20 Hct 36.3 % (35.5-45.6) 04/20/21 03:20 MCV 82 fl (84-94) L 04/20/21 03:20 MCH 27 pg (28-32) L 04/20/21 03:20 MCHC 33 % (32-34) 04/20/21 03:20 RDW 19.6 % (13.2-15.2) H 04/20/21 03:20 Plt Count 174 K/mm3 (140-440) 04/20/21 03:20 Lymph % (Auto) 17.0 % (13.4-35.0) 04/19/21 08:12 [place] % (Auto) 13.5 % (0.0-7.3) H 04/19/21 08:12 Eos % (Auto) 2.6 % (0.0-4.3) 04/19/21 08:12 Baso % (Auto) 0.6 % (0.0-1.8) 04/19/21 08:12 Lymph # (Auto) 1.5 K/mm3 (1.2-5.4) 04/19/21 08:12 [place] # (Auto) 1.2 K/mm3 (0.0-0.8) H 04/19/21 08:12 Eos # (Auto) 0.2 K/mm3 (0.0-0.4) 04/19/21 08:12 Baso # (Auto) 0.1 K/mm3 (0.0-0.1) 04/19/21 08:12 Seg Neutrophils % 66.3 % (40.0-70.0) 04/19/21 08:12 Seg Neutrophils # 5.7 K/mm3 (1.8-7.7) 04/19/21 08:12 PT 15.8 Sec. (12.2-14.9) H 04/20/21 03:20 INR 1.21 (0.87-1.13) H 04/20/21 03:20 APTT 96.3 Sec. (24.2-36.6) H* 04/15/21 04:21 Heparin Anti-Xa Level 0.30 U.I./ml (0.3-0.7) 04/15/21 04:21 Sodium 138 mmol/L (137-145) 04/20/21 03:20 Potassium 3.5 mmol/L (3.6-5.0) L 04/20/21 03:20 Chloride 102.7 mmol/L (98-107) 04/20/21 03:20 Carbon Dioxide 20 mmol/L (22-30) L 04/20/21 03:20 Anion Gap 19 mmol/L 04/20/21 03:20 BUN 16 mg/dL (9-20) 04/20/21 03:20 Creatinine 0.5 mg/dL (0.8-1.3) L 04/20/21 03:20 Estimated GFR > 60 ml/min 04/20/21 03:20 BUN/Creatinine Ratio 32 % 04/20/21 03:20 Glucose 115 mg/dL (75-100) H 04/20/21 03:20 POC Glucose 135 mg/dL (70-105) H 04/20/21 04:50 Calcium 8.9 mg/dL (8.4-10.2) 04/20/21 03:20 Magnesium 2.00 mg/dL (1.7-2.3) 04/18/21 16:52 Total Bilirubin 0.30 mg/dL (0.1-1.2) 04/13/21 17:44 AST 121 units/L (5-40) H 04/13/21 17:44 ALT 59 units/L (7-56) H 04/13/21 17:44 Alkaline Phosphatase 197 units/L (35-129) H 04/13/21 17:44 Total Creatine Kinase 458 units/L (55-170) H 04/16/21 05:08 CK-MB (CK-2) 3.4 ng/mL (0.0-4.0) 04/16/21 05:08 CK-MB (CK-2) Rel Index 0.7 (0-4) 04/16/21 05:08 Troponin T 0.114 ng/mL (0.00-0.029) H* D 04/16/21 05:08 Total Protein 7.9 g/dL (6.3-8.2) 04/13/21 17:44 Albumin 4.3 g/dL (3.9-5) 04/13/21 17:44 Albumin/Globulin Ratio 1.2 % 04/13/21 17:44 Triglycerides 72 mg/dL (2-149) 04/13/21 20:44 Cholesterol 209 mg/dL (50-199) H 04/13/21 20:44 LDL Cholesterol Direct 158 mg/dL (50-130) H 04/13/21 20:44 HDL Cholesterol 47 mg/dL (40-59) 04/13/21 20:44 Cholesterol/HDL Ratio 4.44 % 04/13/21 20:44 Lipase 84 units/L (13-60) H 04/13/21 17:44 Blood Type O POSITIVE 04/15/21 04:21 Antibody Screen Negative 04/15/21 04:21 Ramey/IV: Voiding Method Urinal Active Medications - Current Medications Current Medications: Generic Name Dose Route Start Last Admin Trade Name Freq PRN Reason Stop Dose Admin Acetaminophen 650 mg 04/13/21 21:50 Acetaminophen 325 Mg Tab PO Q6H PRN Pain, Mild (1-3) Hydrocodone Bitart/Acetaminophen 1 each 04/20/21 11:00 Hydrocodone/Acetaminophen 5-325 Mg Tab PO Q4H PRN Pain, Moderate (4-6) Aspirin 81 mg 04/20/21 10:00 04/20/21 07:45 Aspirin 81 Mg Tab Chew PO 81 mg QDAY STUART Administration Atorvastatin Calcium 80 mg 04/14/21 22:00 04/19/21 22:01 Atorvastatin 40 Mg Tab PO 80 mg QHS STUART Administration Citalopram Hydrobromide 20 mg 04/15/21 10:00 04/20/21 10:18 Citalopram 20 Mg Tab PO 20 mg QDAY STUART Administration Lorazepam 4 mg 04/13/21 21:53 04/15/21 16:49 Lorazepam 2 Mg/Ml Vial IV 4 mg Q1HR PRN Administration CIWA-Ar 16-25 Lorazepam 2 mg 04/13/21 21:55 04/15/21 21:25 Lorazepam 2 Mg/Ml Vial IV 2 mg Q1HR PRN Administration CIWA-Ar 8-15 Magnesium Hydroxide 30 ml 04/13/21 21:50 Magnesium Hydroxide (Mom) Oral Liqd Udc PO Q4H PRN Constipation Metoprolol Tartrate 50 mg 04/14/21 10:00 04/20/21 10:18 Metoprolol Tartrate 50 Mg Tab PO 50 mg BID STUART Administration Morphine Sulfate 2 mg 04/13/21 21:50 Morphine 4 Mg/1 Ml Inj IV Q5MIN PRN Chest Pain Nitroglycerin 0.4 mg 04/13/21 21:50 Nitroglycerin 0.4 Mg Tab Subl SL Q5M PRN Chest Pain Ondansetron HCl 4 mg 04/13/21 21:50 04/19/21 05:09 Ondansetron 4 Mg/2 Ml Inj IV 4 mg Q8H PRN Administration Nausea And Vomiting Pantoprazole Sodium 40 mg 04/14/21 10:00 04/20/21 10:18 Pantoprazole 40 Mg Tab PO 40 mg QDAY STUART Administration Sodium Chloride 10 ml 04/13/21 21:50 Sodium Chloride 0.9% 10 Ml Flush Syringe IV PRN PRN LINE FLUSH Sodium Chloride 10 ml 04/13/21 22:00 04/20/21 10:18 Sodium Chloride 0.9% 10 Ml Flush Syringe IV 10 ml BID STUART Administration Ticagrelor 90 mg 04/19/21 22:00 04/20/21 07:45 Ticagrelor 90 Mg Tab PO 90 mg BID STUART Administration Tramadol HCl 50 mg 04/20/21 11:00 Tramadol 50 Mg Tab PO Q4H PRN Pain, Mild (1-3)
[2021-04-20] MEDS ORDERED: traMADol 50 MG TAB PO PRN (11:00)
[2021-04-20] MEDS ORDERED: HYDROcodone/ACETAMINOPHEN 5-325 MG TAB PO PRN (11:00)
--- NOTE | 2021-04-20 11:47 | Progress Note ---
Assessment and Plan NSTEMI CAD s/p PCI of RCA and circumflex * S/p [facility] yesterday s/p PCI w/TOÑO of circumflex * S/p staged PCI w/TOÑO of RCA * Continue DAPT (bASA & Brilinta), statin, and beta bryan * Echo 04/13/2021- EF 50-55%, right ventricular systolic function normal, left and right atrium are normal, normal echo H/o Alcohol abuse * Management per primary team Patient s/p PCI of RCA with TOÑO. Plan for discharge tomorrow. Patient seen in conjunction with Dr. Nix who agrees with this plan of care. Will continue to follow - Patient Problems (1) NSTEMI (non-ST elevated myocardial infarction) Current Visit: Yes Status: Acute (2) Alcohol abuse Current Visit: Yes Status: Acute (3) Chest pain Current Visit: Yes Status: Acute (4) Elevated troponin Current Visit: Yes Status: Acute (5) History of heart artery stent Current Visit: Yes Status: Acute (6) COPD (chronic obstructive pulmonary disease) Current Visit: Yes Status: Chronic Qualifiers: COPD type: chronic bronchitis Subjective Date of service: 04/20/21 Principal diagnosis: NSTEMI Interval history: Patient s/p [facility] with PCI of RCA this AM. Patient resting in bed with no complaints Sinus 70s on monitor Objective Vital Signs Temp Pulse Resp BP BP Pulse Ox 04/20/21 10:17 100 04/20/21 04:59 98.1 F 69 18 138/62 98 04/20/21 00:08 98.7 F 64 18 114/61 98 04/19/21 22:17 86 04/19/21 22:01 90 143/84 04/19/21 22:00 99 04/19/21 19:45 98.6 F 90 20 143/84 97 04/19/21 16:19 98.6 F 81 18 151/78 97 04/19/21 12:05 98.6 F 62 18 135/71 96 - Physical Examination General: No Apparent Distress HEENT: Positive: EOMI, Normocephaly Neck: Positive: neck supple, trachea midline Cardiac: Positive: Reg Rate and Rhythm Lungs: Positive: Normal Breath Sounds Neuro: Positive: Grossly Intact Abdomen: Positive: Soft. Negative: Tender Skin: Negative: Rash Incision: Cardiac Cath Site (R radial - clean/dry/intact, no evidence of bleeding or hematoma) Musculoskeletal: No Fluid Collection Extremities: Present: lower extr. pulses. Absent: edema - Labs and Meds Coagulation 04/20/21 Range/Units 03:20 PT 15.8 H (12.2-14.9) Sec. INR 1.21 H (0.87-1.13) CBC 04/20/21 Range/Units 03:20 WBC 6.3 (4.5-11.0) K/mm3 RBC 4.42 (3.65-5.03) M/mm3 Hgb 11.8 (11.8-15.2) gm/dl Hct 36.3 (35.5-45.6) % Plt Count 174 (140-440) K/mm3 Comprehensive Metabolic Panel 04/20/21 Range/Units 03:20 Sodium 138 (137-145) mmol/L Potassium 3.5 L (3.6-5.0) mmol/L Chloride 102.7 (98-107) mmol/L Carbon Dioxide 20 L (22-30) mmol/L BUN 16 (9-20) mg/dL Creatinine 0.5 L (0.8-1.3) mg/dL Glucose 115 H (75-100) mg/dL Calcium 8.9 (8.4-10.2) mg/dL - Imaging and Cardiology EKG: report reviewed, image reviewed Echo: report reviewed (04/13/2021 - normal EF, mild diastolic dysfxn) Cardiac cath: report reviewed - Telemetry EKG Rhythm: Sinus Rhythm - EKG Sinus rhythms and dysrhythmias: sinus rhythm Repolarization changes or abnormalities: nonspecific abnormality, ST segment, and/or T wave - Allied health notes Allied health notes reviewed: nursing
--- NOTE | 2021-04-20 18:07 | Progress Note ---
Assessment and Plan Assessment and plan: --Non-ST elevation AK; Current Visit: Yes Status: Acute Patient had left heart cath this a.m. Had one stent Repeat left heart cath tomorrow for staged procedure and stent placement Patient started on Brilinta in place of Plavix, dual anti-platelet therapy s/p Staged PCI today stent TOÑO mid RCA[for stent restenosis] --Alcohol withdrawal symptoms: Current Visit: Yes Status: Acute No withdrawal symptoms at this point No agitation Sitting in chair and eating his lunch -- HTN (hypertension) Current Visit: No Status: Acute Blood pressure well controlled --Dyslipidemia; Current Visit: Yes Status: Acute Continue statin, low-cholesterol diet --History of chronic alcohol abuse Current Visit: Yes Status: Acute Counseling done, advised to quit alcohol intake Seek alcohol rehabilitation, alcohol Anonymous support group Monitor for alcohol withdrawal symptoms --Nicotine dependence Current Visit: Yes Status: Acute Patient counseled on quitting tobacco abuse. Smoking cessation, nicotine patch as needed --DVT prophylaxis Current Visit: No Status: Acute Patient placed on subcutaneous heparin. --Full code status Current Visit: Yes Status: Acute Patient is full code. We will closely monitor the patient and adjust the management as needed Cardiology following Possible discharge tomorrow if cleared by cardiology patient is stable Plan of care reviewed with the patient his nurse I also discussed with case management Brief history and hospital course: 55-year-old male with known history of coronary artery disease status post stent placement in the past, previous cardiac arrest, COPD, history of GI bleed and a strong family history of coronary artery disease presenting with to the emergency room today complaining of mid epigastric pain radiating to the upper chest. Pain is said to be constant and gets worse upon taking a deep breath. She has had associated nausea and vomiting prior to arrival in the emergency room. He denies any headaches, no dizziness or was diaphoretic. He had some tingling sensation in the left upper extremity. He denies any abdominal pain, no diarrhea, no hematuria or dysuria, no fever or chills. Patient denies any sick contacts and no recent travel. Denies any contact with anyone with COVID- 19. Patient admits that he has not been quite compliant with his medications and al so has not had the Covid 19 vaccination. Initial work-up in the emergency room today reveals a troponin of less than 0.01 however subsequent troponin levels were elevated at 0.159 and 0.268. EKG showed no acute findings. Chest x-ray showed no acute findings. Jukebox Routeman on-call was consulted by the ER physician who indicated that patient will be followed up in the a.m. Nitropaste was recommended. Anticoagulation was not recommended at this time. 04/14/2021 NSTEMI Left heart cath on 04/15/2021 04/15/2021; Patient with non-ST elevation AK, cardiology scheduled for left heart cath However had to cancel due to acute alcohol withdrawal symptoms Patient is on CIWA protocol Closely monitor discharge when stable 04/16/2021 Left heart cath postponed because of persistent agitation. To be rescheduled for a later date Patient calmer during my examination 04/17/2021 Left heart cath postponed to Monday Patient less agitated Continue CIWA protocol 04/18/2021 Left heart cath tomorrow Patient sitting in chair and eating comfortably No chest pain Patient is aware of his diagnosis and his comorbid conditions I wanted to call his family but patient said that he has been talking with his family and they are well-informed 04/19/2021 S/p LHC this AM, which revealed severe 2-vessel disease with culprit mid LCx (s/p PCI w/TOÑO) and 89% in-stent restenosis of prox/mid RCA (awaiting staged PCI). Pt tolerated procedure well. Currently chest pain-free. SR 60s on tele, no events. Plan for staged PCI of RCA in AM. NPO after midnight. Changed Plavix to Brilinta. By cardiology Continue DAPT (bASA & Brilinta), statin, and beta bryan. Smoking cessation and reduction of EtOH intake strongly encouraged. Pt verbalized understanding. 04/20/2021; Staged PCI today stent TOÑO mid RCA[for stent restenosis] Possible discharge tomorrow if patient is stable and cleared by cardiology History Interval history: I have seen and examined the patient at the bedside Patient's chart and medications reviewed No new overnight events reported Patient underwent staged PCI with TOÑO for in-stent restenosis Vital signs noted Hospitalist Physical - Constitutional Vitals: Temp Pulse Resp BP Pulse Ox 98.5 F 95 H 18 165/87 100 04/20/21 10:00 04/20/21 10:00 04/20/21 10:00 04/20/21 10:00 04/20/21 10:17 General appearance: Present: no acute distress, well-nourished - EENT Eyes: Present: PERRL, EOM intact - Neck Neck: Present: supple, normal ROM - Respiratory Respiratory effort: normal Respiratory: bilateral: diminished, negative: rales, rhonchi, wheezing - Cardiovascular Rhythm: regular Heart Sounds: Present: S1 & S2 - Extremities Extremities: no ischemia, No edema - Abdominal General gastrointestinal: soft, non-tender, non-distended, normal bowel sounds - Integumentary Integumentary: Present: clear, warm - Psychiatric Psychiatric: appropriate mood/affect, cooperative - Neurologic Neurologic: CNII-XII intact, moves all extremities HEART Score - HEART Score EKG: Normal Age: 45-65 Risk factors: > 3 risk factors or hx of atherosclerotic disease Troponin: Troponin T 0.114 ng/mL (0.00-0.029) H* D 04/16/21 05:08 Troponin: < normal limit Results - Labs CBC & Chem 7: 04/20/21 03:20 04/20/21 03:20 Labs: Laboratory Last Values WBC 6.3 K/mm3 (4.5-11.0) 04/20/21 03:20 RBC 4.42 M/mm3 (3.65-5.03) 04/20/21 03:20 Hgb 11.8 gm/dl (11.8-15.2) 04/20/21 03:20 Hct 36.3 % (35.5-45.6) 04/20/21 03:20 MCV 82 fl (84-94) L 04/20/21 03:20 MCH 27 pg (28-32) L 04/20/21 03:20 MCHC 33 % (32-34) 04/20/21 03:20 RDW 19.6 % (13.2-15.2) H 04/20/21 03:20 Plt Count 174 K/mm3 (140-440) 04/20/21 03:20 Lymph % (Auto) 17.0 % (13.4-35.0) 04/19/21 08:12 [place] % (Auto) 13.5 % (0.0-7.3) H 04/19/21 08:12 Eos % (Auto) 2.6 % (0.0-4.3) 04/19/21 08:12 Baso % (Auto) 0.6 % (0.0-1.8) 04/19/21 08:12 Lymph # (Auto) 1.5 K/mm3 (1.2-5.4) 04/19/21 08:12 [place] # (Auto) 1.2 K/mm3 (0.0-0.8) H 04/19/21 08:12 Eos # (Auto) 0.2 K/mm3 (0.0-0.4) 04/19/21 08:12 Baso # (Auto) 0.1 K/mm3 (0.0-0.1) 04/19/21 08:12 Seg Neutrophils % 66.3 % (40.0-70.0) 04/19/21 08:12 Seg Neutrophils # 5.7 K/mm3 (1.8-7.7) 04/19/21 08:12 PT 15.8 Sec. (12.2-14.9) H 04/20/21 03:20 INR 1.21 (0.87-1.13) H 04/20/21 03:20 APTT 96.3 Sec. (24.2-36.6) H* 04/15/21 04:21 Heparin Anti-Xa Level 0.30 U.I./ml (0.3-0.7) 04/15/21 04:21 Sodium 138 mmol/L (137-145) 04/20/21 03:20 Potassium 3.5 mmol/L (3.6-5.0) L 04/20/21 03:20 Chloride 102.7 mmol/L (98-107) 04/20/21 03:20 Carbon Dioxide 20 mmol/L (22-30) L 04/20/21 03:20 Anion Gap 19 mmol/L 04/20/21 03:20 BUN 16 mg/dL (9-20) 04/20/21 03:20 Creatinine 0.5 mg/dL (0.8-1.3) L 04/20/21 03:20 Estimated GFR > 60 ml/min 04/20/21 03:20 BUN/Creatinine Ratio 32 % 04/20/21 03:20 Glucose 115 mg/dL (75-100) H 04/20/21 03:20 POC Glucose 135 mg/dL (70-105) H 04/20/21 04:50 Calcium 8.9 mg/dL (8.4-10.2) 04/20/21 03:20 Magnesium 2.00 mg/dL (1.7-2.3) 04/18/21 16:52 Total Bilirubin 0.30 mg/dL (0.1-1.2) 04/13/21 17:44 AST 121 units/L (5-40) H 04/13/21 17:44 ALT 59 units/L (7-56) H 04/13/21 17:44 Alkaline Phosphatase 197 units/L (35-129) H 04/13/21 17:44 Total Creatine Kinase 458 units/L (55-170) H 04/16/21 05:08 CK-MB (CK-2) 3.4 ng/mL (0.0-4.0) 04/16/21 05:08 CK-MB (CK-2) Rel Index 0.7 (0-4) 04/16/21 05:08 Troponin T 0.114 ng/mL (0.00-0.029) H* D 04/16/21 05:08 Total Protein 7.9 g/dL (6.3-8.2) 04/13/21 17:44 Albumin 4.3 g/dL (3.9-5) 04/13/21 17:44 Albumin/Globulin Ratio 1.2 % 04/13/21 17:44 Triglycerides 72 mg/dL (2-149) 04/13/21 20:44 Cholesterol 209 mg/dL (50-199) H 04/13/21 20:44 LDL Cholesterol Direct 158 mg/dL (50-130) H 04/13/21 20:44 HDL Cholesterol 47 mg/dL (40-59) 04/13/21 20:44 Cholesterol/HDL Ratio 4.44 % 04/13/21 20:44 Lipase 84 units/L (13-60) H 04/13/21 17:44 Blood Type O POSITIVE 04/15/21 04:21 Antibody Screen Negative 04/15/21 04:21 Ramey/IV: Voiding Method Urinal Active Medications - Current Medications Current Medications: Generic Name Dose Route Start Last Admin Trade Name Freq PRN Reason Stop Dose Admin Acetaminophen 650 mg 04/13/21 21:50 Acetaminophen 325 Mg Tab PO Q6H PRN TEMP > 100.5 Hydrocodone Bitart/Acetaminophen 1 each 04/20/21 11:00 Hydrocodone/Acetaminophen 5-325 Mg Tab PO Q4H PRN Pain, Moderate (4-6) Aspirin 81 mg 04/20/21 10:00 04/20/21 07:45 Aspirin 81 Mg Tab Chew PO 81 mg QDAY STUART Administration Atorvastatin Calcium 80 mg 04/14/21 22:00 04/19/21 22:01 Atorvastatin 40 Mg Tab PO 80 mg QHS STUART Administration Citalopram Hydrobromide 20 mg 04/15/21 10:00 04/20/21 10:18 Citalopram 20 Mg Tab PO 20 mg QDAY STUART Administration Lorazepam 4 mg 04/13/21 21:53 04/15/21 16:49 Lorazepam 2 Mg/Ml Vial IV 4 mg Q1HR PRN Administration CIWA-Ar 16-25 Lorazepam 2 mg 04/13/21 21:55 04/15/21 21:25 Lorazepam 2 Mg/Ml Vial IV 2 mg Q1HR PRN Administration CIWA-Ar 8-15 Magnesium Hydroxide 30 ml 04/13/21 21:50 Magnesium Hydroxide (Mom) Oral Liqd Udc PO Q4H PRN Constipation Metoprolol Tartrate 50 mg 04/14/21 10:00 04/20/21 10:18 Metoprolol Tartrate 50 Mg Tab PO 50 mg BID STUART Administration Morphine Sulfate 2 mg 04/13/21 21:50 Morphine 4 Mg/1 Ml Inj IV Q5MIN PRN Chest Pain Nitroglycerin 0.4 mg 04/13/21 21:50 Nitroglycerin 0.4 Mg Tab Subl SL Q5M PRN Chest Pain Ondansetron HCl 4 mg 04/13/21 21:50 04/19/21 05:09 Ondansetron 4 Mg/2 Ml Inj IV 4 mg Q8H PRN Administration Nausea And Vomiting Pantoprazole Sodium 40 mg 04/14/21 10:00 04/20/21 10:18 Pantoprazole 40 Mg Tab PO 40 mg QDAY STUART Administration Sodium Chloride 10 ml 04/13/21 21:50 Sodium Chloride 0.9% 10 Ml Flush Syringe IV PRN PRN LINE FLUSH Sodium Chloride 10 ml 04/13/21 22:00 04/20/21 10:18 Sodium Chloride 0.9% 10 Ml Flush Syringe IV 10 ml BID STUART Administration Ticagrelor 90 mg 04/19/21 22:00 04/20/21 07:45 Ticagrelor 90 Mg Tab PO 90 mg BID STUART Administration Tramadol HCl 50 mg 04/20/21 11:00 Tramadol 50 Mg Tab PO Q4H PRN Pain, Mild (1-3)
[2021-04-21 04:04] VITALS: BP 126/66
[2021-04-21 06:38] LABS: Blood Urea Nitrogen 14 mg/dL (9-20); Calcium 9.2 mg/dL (8.4-10.2); Hemolysis Index 4
[2021-04-21 06:39] LABS: BUN/Creatinine Ratio 28
[2021-04-21] MEDS: METOPROLOL TARTRATE 50 MG TAB PO SCH (09:36)
[2021-04-21] MEDS: ASPIRIN 81 MG TAB CHEW PO SCH (09:36)
[2021-04-21] MEDS: PANTOPRAZOLE 40 MG TAB PO SCH (09:36)
[2021-04-21] MEDS: TICAGRELOR 90 MG TAB PO SCH (09:37)
[2021-04-21] MEDS: CITALOPRAM 20 MG TAB PO SCH (09:37)
--- NOTE | 2021-04-21 11:21 | Progress Note ---
Assessment and Plan NSTEMI CAD s/p PCI of RCA and circumflex * S/p C PCI w/TOÑO of circumflex * S/p staged PCI w/TOÑO of RCA * Continue DAPT (bASA & Brilinta), statin, and beta bryan * Echo 04/13/2021- EF 50-55%, right ventricular systolic function normal, left and right atrium are normal, normal echo H/o Alcohol abuse * Management per primary team Explained the importance DAPT and medication compliance. Patient expressed understanding. Patient is stable and ok for discharge from a cardiac perspective. Patient should follow up with Dr. Nix, [facility], on 05/12/2021 at 11:45AM at our [place] location. Patient seen in conjunction with Dr. Nix who agrees with this plan of care. Will see as needed - Patient Problems (1) NSTEMI (non-ST elevated myocardial infarction) Current Visit: Yes Status: Acute (2) Alcohol abuse Current Visit: Yes Status: Acute (3) Chest pain Current Visit: Yes Status: Acute (4) Elevated troponin Current Visit: Yes Status: Acute (5) History of heart artery stent Current Visit: Yes Status: Acute (6) COPD (chronic obstructive pulmonary disease) Current Visit: Yes Status: Chronic Qualifiers: COPD type: chronic bronchitis Subjective Date of service: 04/21/21 Principal diagnosis: NSTEMI Interval history: Patient resting in bed with no complaints and expresses desire to go home Sinus 70s on monitor wit no events Objective Last Vital Signs Temp 97.6 F 04/21/21 09:04 Pulse 56 L 04/21/21 09:36 Resp 18 04/21/21 09:04 BP 126/66 04/21/21 09:36 Pulse Ox 99 04/21/21 09:04 - Physical Examination General: No Apparent Distress HEENT: Positive: EOMI, Normocephaly Neck: Positive: neck supple, trachea midline Cardiac: Positive: Reg Rate and Rhythm Lungs: Positive: Normal Breath Sounds Neuro: Positive: Grossly Intact Abdomen: Positive: Soft. Negative: Tender Skin: Negative: Rash Incision: Cardiac Cath Site (R radial - clean/dry/intact, no evidence of bleeding or hematoma) Musculoskeletal: No Fluid Collection Extremities: Present: upper extr. pulses, lower extr. pulses. Absent: edema - Labs and Meds Comprehensive Metabolic Panel 04/21/21 Range/Units 05:14 Sodium 137 (137-145) mmol/L Potassium 3.4 L (3.6-5.0) mmol/L Chloride 103.9 (98-107) mmol/L Carbon Dioxide 23 (22-30) mmol/L BUN 14 (9-20) mg/dL Creatinine 0.5 L (0.8-1.3) mg/dL Glucose 111 H (75-100) mg/dL Calcium 9.2 (8.4-10.2) mg/dL - Imaging and Cardiology EKG: report reviewed, image reviewed Echo: report reviewed (04/13/2021 - normal EF, mild diastolic dysfxn) Cardiac cath: report reviewed - Telemetry EKG Rhythm: Sinus Rhythm - EKG Sinus rhythms and dysrhythmias: sinus rhythm Repolarization changes or abnormalities: nonspecific abnormality, ST segment, and/or T wave - Allied health notes Allied health notes reviewed: nursing
--- NOTE | 2021-04-21 14:35 | Discharge Summary ---
Providers - Providers Date of Admission: 04/14/21 11:00 Date of discharge: 04/21/21 Attending physician: TIFFANY SEVILLA 04/13/21 Consult to Cardiac Rehabilitation [CONS] Routine Reason For Exam: Phase I 04/13/21 21:50 Consult to Cardiology [CONS] Routine Consulting Provider: LAURA FLAHERTY Reason For Exam: chest pain 04/19/21 10:49 Consult to Cardiac Rehabilitation [CONS] Routine Reason For Exam: Cardiac Rehab Evaluation 04/20/21 10:16 Consult to Cardiac Rehabilitation [CONS] Routine Reason For Exam: Cardiac Rehab Evaluation Primary care physician: CHEMICAL RESEARCH ENGINEER Hospitalization Reason for admission: Chest pain Condition: Stable Pertinent studies: CT abdomen and pelvis Chest x-ray Procedures: Left heart catheterization x2 status post PCI Hospital course: 55-year-old male with known history of coronary artery disease status post stent placement in the past, previous cardiac arrest, COPD, history of GI bleed and a strong family history of coronary artery disease presenting with to the emergency room today complaining of mid epigastric pain radiating to the upper chest. Pain is said to be constant and gets worse upon taking a deep breath. She has had associated nausea and vomiting prior to arrival in the emergency room. He denies any headaches, no dizziness or was diaphoretic. He had some tingling sensation in the left upper extremity. He denies any abdominal pain, no diarrhea, no hematuria or dysuria, no fever or chills. Patient denies any sick contacts and no recent travel. Denies any contact with anyone with COVID- 19. Patient admits that he has not been quite compliant with his medications and also has not had the Covid 19 vaccination. Initial work-up in the emergency room today reveals a troponin of less than 0.01 however subsequent troponin levels were elevated at 0.159 and 0.268. EKG showed no acute findings. Chest x-ray showed no acute findings. Sr Risk Management Consultant on-call was consulted by the ER physician who indicated that patient will be followed up in the a.m. Nitropaste was recommended. Anticoagulation was not recommended at this time. Discharge diagnosis: --Non-ST elevation [place]; Current Visit: Yes Status: Acute Patient had left heart cath this a.m. Had one stent Repeat left heart cath staged procedure and stent placement 04/20/21 Patient started on Brilinta in place of Plavix, dual anti-platelet therapy s/p Staged PCI today stent TOÑO mid RCA[for stent restenosis] --Alcohol withdrawal symptoms: Current Visit: Yes Status: Acute No withdrawal symptoms at this point No agitation Sitting in chair and eating his lunch -- HTN (hypertension) Current Visit: No Status: Acute Blood pressure well controlled --Dyslipidemia; Current Visit: Yes Status: Acute Continue statin, low-cholesterol diet --History of chronic alcohol abuse Current Visit: Yes Status: Acute Counseling done, advised to quit alcohol intake Seek alcohol rehabilitation, alcohol Anonymous support group Monitor for alcohol withdrawal symptoms --Nicotine dependence Current Visit: Yes Status: Acute Patient counseled on quitting tobacco abuse. Smoking cessation, nicotine patch as needed --DVT prophylaxis Current Visit: No Status: Acute Patient placed on subcutaneous heparin. --Full code status Current Visit: Yes Status: Acute Patient is full code. Cleared by cardiology Stable at discharge Disposition: 01 HOME / SELF CARE / HOMELESS Final Discharge Diagnosis (Prints w/discharge instructions): Non-ST elevation [place]. Coronary artery disease s/p PCI/stent placement. Hypertension. Dyslipidemia. Chronic alcohol use. Chronic tobacco use. Alcohol withdrawal symptoms treated and resolved Time spent for discharge: 35-minute Core Measure Documentation - Palliative Care Palliative Care/ Comfort Measures: Not Applicable - Core Measures Any of the following diagnoses?: none Exam - Constitutional Vitals: Temp Pulse Resp BP Pulse Ox 97.6 F 56 L 18 126/66 98 04/21/21 09:04 04/21/21 09:36 04/21/21 09:04 04/21/21 09:36 04/21/21 10:00 General appearance: Present: no acute distress, well-nourished - EENT Eyes: Present: PERRL, EOM intact - Neck Neck: Present: supple, normal ROM - Respiratory Respiratory effort: normal Respiratory: bilateral: diminished, negative: rales, rhonchi, wheezing - Cardiovascular Rhythm: regular Heart Sounds: Present: S1 & S2 - Extremities Extremities: no ischemia, No edema - Abdominal General gastrointestinal: Present: soft, non-tender, non-distended, normal bowel sounds - Integumentary Integumentary: Present: clear, warm - Musculoskeletal Musculoskeletal: strength equal bilaterally, generalized weakness - Psychiatric Psychiatric: appropriate mood/affect, cooperative - Neurologic Neurologic: moves all extremities Plan Activity: no restrictions Diet: other (Cardiac diet) Additional Instructions: Advised to comply with medications, diet and follow-up visits. If you have worsening symptoms contact MD or go to emergency room as needed. Advised to follow primary care physician and private compensation advisor per schedule Follow up with: PRIMARY CARE, [Primary Care Provider] - 7 Days VOLODYMYR GAN MD [Staff Physician] - 7 Days Prescriptions: Aspirin [Aspirin BABY CHEW TAB] 81 mg PO QDAY #30 tab.chew Ticagrelor [Brilinta] 90 mg PO BID #60 tablet Citalopram [Celexa] 20 mg PO QDAY #30 AtorvaSTATin [Lipitor] 80 mg PO QHS #30 tablet Metoprolol [Lopressor TAB] 50 mg PO BID #60 tablet Pantoprazole [Protonix TAB] 40 mg PO QDAY #30 tablet traMADoL [Ultram 50 MG tab] 50 mg PO Q8H PRN #20 tablet PRN Reason: Pain, Mild (1-3)
== END 2021-04-21 15:15 | disposition home or self-care (01) | DRG 246 ==
LOC: ED 17:00 → 4A 21:28 → OBSVTOIN 04-14 11:00 → 4A 04-14 12:49
PROVIDERS: ADMIT Internal Medicine Geriatric Medicine; ATTEND Internal Medicine
PROC: 027034Z Dilation of Coronary Artery, One Artery with Drug-eluting Intraluminal Device, Percutaneous Approach (ICD-10-PCS; 2021-04-19)
PROC: 4A023N7 Measurement of Cardiac Sampling and Pressure, Left Heart, Percutaneous Approach (ICD-10-PCS; 2021-04-19)
PROC: B2151ZZ Fluoroscopy of Left Heart using Low Osmolar Contrast (ICD-10-PCS; 2021-04-19)
PROC: B2111ZZ Fluoroscopy of Multiple Coronary Arteries using Low Osmolar Contrast (ICD-10-PCS; 2021-04-19)
PROC: 027034Z Dilation of Coronary Artery, One Artery with Drug-eluting Intraluminal Device, Percutaneous Approach (ICD-10-PCS; principal; 2021-04-20)
PROC: 4A023N7 Measurement of Cardiac Sampling and Pressure, Left Heart, Percutaneous Approach (ICD-10-PCS; 2021-04-20)
PROC: B2111ZZ Fluoroscopy of Multiple Coronary Arteries using Low Osmolar Contrast (ICD-10-PCS; 2021-04-20)
DX: T82.855A Stenosis of coronary artery stent, initial encounter (principal); I21.4 Non-ST elevation (NSTEMI) myocardial infarction; F10.231 Alcohol dependence with withdrawal delirium; I25.10 Atherosclerotic heart disease of native coronary artery without angina pectoris; Y84.8 Other medical procedures as the cause of abnormal reaction of the patient, or of later complication, without mention of misadventure at the time of the procedure; J44.9 Chronic obstructive pulmonary disease, unspecified; Z95.5 Presence of coronary angioplasty implant and graft; I10 Essential (primary) hypertension; F17.210 Nicotine dependence, cigarettes, uncomplicated; Y90.9 Presence of alcohol in blood, level not specified; Z71.41 Alcohol abuse counseling and surveillance of alcoholic; E78.2 Mixed hyperlipidemia; Z71.6 Tobacco abuse counseling
CPT/HCPCS: 36415; 71045; 74177; 80048; 80053; 80061; 82550; 82553; 82962; 83690; 83735; 84484; 85014; 85018; 85025; 85027; 85049; 85520; 85610; 85730; 86850; 86900; 86901; 92928; 92978; 93005; 93306; 93458; 96374; G0378; A9270-GY; C1725; C1753; C1769; C1874; C1887; C1894; C9600; J0461; J1644; J2060; J2250; J2405; J2785; J3010; J7040; Q9967